=== PATIENT | female | born 1970 | race African-American/Black ===

== ENCOUNTER 2017-02-12 08:13 | Emergency (ER) | payer OTHER ==
[~2017-02-12] VITALS: Ht 165.1 cm; Wt 79.4 kg
[2017-02-12 08:22] VITALS: BP 142/84
--- NOTE | 2017-02-12 08:32 | NUR ---
Patient ambulated to bed 6 at this time.
--- NOTE | 2017-02-12 08:34 | NUR ---
46F BIB FAMILY C/O LEFT CHEST PAIN, SHARP, NON-RADIATING, 8 X 0300 THIS MORNING W/ RIGHT ARM NUMBNESS; RIGHT CAP REFILL < 2 SECONDS, RIGHT RADIAL PULSE PALPABLE, NO LOSS OF SENSATION TO RIGHT ARM AT THIS TIME; PT AA&OX4, PERRLA, BL LUNG SOUNDS CLEAR, RR EVEN/UNLABORED, SKIN IS WARM/DRY/INTACT AT THIS TIME; PT STATES NO N/V/D AT THIS TIME; PT PLACED ON MONITOR, RESTING IN BED W/ HOB ELEVATED AND IN LOWEST POSITION; POSITIONED FOR COMFORT; ER MD MADE AWARE OF STATUS. WILL CONTINUE TO MONITOR.
--- NOTE | 2017-02-12 08:56 | NUR ---
XRAY AT BEDSIDE.
[2017-02-12 09:07] LABS: HEMATOCRIT 26.3 % (36-48); HEMOGLOBIN 7.9 g/dL (12.0-16.0); MEAN CORPUSCULAR HEMOGLOBIN 21 pg (27-31); MEAN CORPUSCULAR HGB CONC 30 g/dL (33-37); MEAN CORPUSCULAR VOLUME 69 fL (80-94); PLATELET COUNT (AUTO) 188 K/uL (140-450); RED BLOOD CELL COUNT(AUTO) 3.83 MIL/uL (4.20-5.40); RED CELL DISTRIBUTION WIDTH 24.9 % (11.6-13.7); WHITE BLOOD COUNT (AUTO) 9.4 K/uL (4.8-10.8)
[2017-02-12 09:10] LABS: ANION GAP 11.6 (8-16); CALCIUM 8.8 mg/dL (8.5-10.1); CARBON DIOXIDE 25.4 mmol/L (21-32); CREATININE 0.5 mg/dL (0.6-1.3)
[2017-02-12 09:14] LABS: LYMPHOCYTES % (MANUAL) 9 % (20-46); MONOCYTES % (MANUAL) 17 % (5-12); NEUTROPHILS % (MANUAL) 69 (43-65)
[2017-02-12 09:15] LABS: ANISOCYTOSIS 2+; EOSINOPHILS % (MANUAL) 5 % (0-4); HYPOCHROMASIA 1+
[2017-02-12 09:16] LABS: ALBUMIN 3.7 g/dL (3.4-5.0); TOTAL BILIRUBIN 0.2 mg/dL (0.0-1.0); TOTAL PROTEIN, SERUM 7.4 g/dL (6.4-8.2)
[2017-02-12 09:23] LABS: BILIRUBIN,URINE NEGATIVE (NEGATIVE); BLOOD, URINE TRACE-I (NEGATIVE); COLOR,URINE YELLOW (YELLOW); LEUKOCYTE ESTERASE ,URINE NEGATIVE (NEGATIVE); NITRITE, URINE NEGATIVE (NEGATIVE); PROTEIN,URINE NEGATIVE (NEGATIVE); UGLUCOSE NEGATIVE (NEGATIVE); UROBILINOGEN,URINE 0.2 EU/dL (0.2 - 1)
[2017-02-12 09:30] LABS: AMPHETAMINE, URINE NEG. ng/ml (NEG <=1000); BARBITURATE, URINE NEG. ng/ml (NEG <=200); BENZODIAZEPINE, URINE NEG. ng/mL (NEG <=200); CANNABINOID, URINE NEG. ng/mL (NEG <=50); COCAINE, URINE NEG. ng/mL (NEG <=300); OPIATE, URINE NEG. ng/mL (NEG <=2000); PHENCYCLIDINE SCREEN,URINE NEG. ng/mL (NEG <=25)
--- NOTE | 2017-02-12 09:33 | NUR ---
PT APPEARS TO BE RESTING COMFORTABLY IN BED; RR EVEN/UNLABORED; POSITIONED FOR COMFORT; WILL CONTINUE TO MONITOR.
[2017-02-12 09:41] LABS: APPEARANCE,URINE HAZY (CLEAR)
--- NOTE | 2017-02-12 09:42 | NUR ---
ER MD DR. CHING EVALUATING PT AT BEDSIDE.
[2017-02-12] MEDS ORDERED: HYDROcodone/APAP 10/325 MG 1 TAB TAB PO STA (09:43)
[2017-02-12 09:45] LABS: BACTERIA,URINE None Seen /HPF (None Seen); RBC,URINE NONE SEEN /HPF (0-5); SQUAMOUS EPITHELIAL CELL,UR 4-10 (MOD) /LPF (0-3 (FEW)); WBC,URINE 0-5 (RARE) /HPF (0-5)
[2017-02-12 09:46] LABS: YEAST,URINE Rare /HPF (None Seen)
--- NOTE | 2017-02-12 09:52 | NUR ---
RT AT BEDSIDE FOR ABG BLOOD DRAW.
[2017-02-12 10:21] LABS: BLOOD GAS BASE EXCESS -0.5 mmol/L (-2.0-2.0); BLOOD GAS HCO3 23.7 mmol/L; BLOOD GAS PCO2 37.1 mmHg (20-50); BLOOD GAS PH 7.424 (7.35-7.45); BLOOD GAS PO2 81.8 mmHg
[2017-02-12 10:22] LABS: BLOOD GAS O2 SAT% 95.8 % (92.0-98.5)
[2017-02-12 11:11] VITALS: BP 133/74
--- NOTE | 2017-02-12 11:11 | NUR ---
Patient discharged with v/s stable. Written and verbal after care instructions given and explained. Patient alert, oriented and verbalized understanding of instructions. Ambulatory with steady gait. All questions addressed prior to discharge. ID band removed. Patient advised to follow up with PMD. Rx of NORCO 10MG-325MG TAB & MOBIC 15MG TAB given. Patient educated on indication of medication including possible reaction and side effects. Opportunity to ask questions provided and answered.
== END 2017-02-12 11:11 | disposition home or self-care (01) ==
LOC: MED 08:13
DX: R07.89 Other chest pain (principal); D64.9 Anemia, unspecified; F20.9 Schizophrenia, unspecified
CPT/HCPCS: 36415; 36600; 71010; 80053; 80305; 81001; 81025; 82803; 84484; 85025; 85379; 99285; Q0092

== ENCOUNTER 2017-09-18 12:04 | Emergency (ER) | payer OTHER ==
[~2017-09-18] VITALS: Ht 165.1 cm; Wt 91.2 kg
[2017-09-18 12:11] VITALS: BP 113/47
--- NOTE | 2017-09-18 12:17 | NUR ---
PT AMBULATED TO BED 12
--- NOTE | 2017-09-18 12:20 | NUR ---
PATIENT PRESENTS TO ED TO GET MEDICAL CLEARANCE FOR HYSTERECTOMY SCHEDULED ON 09/23 . PT IS REQUESTING TO HAVE CXR AND EKG DONE . DENIES N/V/D; SKIN IS PINK/WARM/DRY; AAOX4 WITH EVEN AND STEADY GAIT; LUNGS CLEAR BL; HR EVEN AND REGULAR; PT DENIES ANY FEVER, CP, SOB, OR COUGH AT THIS TIME; PATIENT STATES PAIN OF 0/10 AT THIS TIME; VSS; PATIENT POSITIONED FOR COMFORT; HOB ELEVATED; BEDRAILS UP X2; BED DOWN. ER MD MADE AWARE OF PT STATUS.
[2017-09-18 12:45] LABS: HEMATOCRIT 29.4 % (36-48); MEAN CORPUSCULAR HEMOGLOBIN 24 pg (27-31); MEAN CORPUSCULAR HGB CONC 31 g/dL (33-37); MEAN CORPUSCULAR VOLUME 78 fL (80-94); PLATELET COUNT (AUTO) 515 K/uL (140-450); RED BLOOD CELL COUNT(AUTO) 3.77 MIL/uL (4.20-5.40); RED CELL DISTRIBUTION WIDTH 19.7 % (11.6-13.7); WHITE BLOOD COUNT (AUTO) 13.6 K/uL (4.8-10.8)
[2017-09-18 12:54] LABS: BILIRUBIN,URINE NEGATIVE (NEGATIVE); BLOOD, URINE 3+ (NEGATIVE); COLOR,URINE YELLOW (YELLOW); LEUKOCYTE ESTERASE ,URINE NEGATIVE (NEGATIVE); NITRITE, URINE NEGATIVE (NEGATIVE); PH,URINE 5.5 (5.0-9.0); UGLUCOSE NEGATIVE (NEGATIVE)
[2017-09-18 13:03] LABS: ALBUMIN 3.7 g/dL (3.4-5.0); ANION GAP 14.8 (8-16); CARBON DIOXIDE 24.7 mmol/L (21-32); CREATININE 0.7 mg/dL (0.6-1.3); EOSINOPHILS % (MANUAL) 1 % (0-4); LYMPHOCYTES % (MANUAL) 7 % (20-46); MONOCYTES % (MANUAL) 5 % (5-12); POTASSIUM 3.5 mmol/L (3.5-5.1); TOTAL BILIRUBIN 0.2 mg/dL (0.0-1.0)
[2017-09-18 13:06] LABS: APPEARANCE,URINE HAZY (CLEAR)
[2017-09-18 13:09] LABS: RBC,URINE 3-10 (FEW) /HPF (0-5)
[2017-09-18 13:10] LABS: WBC,URINE 0-5 (RARE) /HPF (0-5)
[2017-09-18 14:23] VITALS: BP 138/70
--- NOTE | 2017-09-18 14:24 | NUR ---
Patient discharged with v/s stable. Written and verbal after care instructions given and explained. Patient verbalized understanding. Ambulatory with steady gait. All questions addressed prior to discharge. Advised to follow up with PMD.
[2017-09-19 04:16] LABS: PROTHROMBIN TIME 10.9 secs (10.8-13.4)
== END 2017-09-18 14:24 | disposition home or self-care (01) ==
LOC: MED 12:04
DX: Z01.812 Encounter for preprocedural laboratory examination (principal); Z88.2 Allergy status to sulfonamides; Z88.6 Allergy status to analgesic agent
CPT/HCPCS: 36415; 71045; 80053; 81001; 85025; 85610; 85730; 93005; 99285; Q0092

== ENCOUNTER 2017-09-23 06:06 | Inpatient (IN) | payer OTHER ==
[2017-09-23] VITALS (24 sets, daily range): BP systolic 102–140; BP diastolic 45–78
[~2017-09-23] VITALS: Ht 165.1 cm; Wt 86.6 kg
[2017-09-23] MEDS ORDERED: BUPIVACAINE-MPF 0.25% 30 ML VIAL INJ ONE (07:22)
[2017-09-23] MEDS ORDERED: GLYCOPYRROLATE 0.2 MG/ML VIAL IV ONE (07:25)
[2017-09-23] MEDS ORDERED: SUCCINYLCHOLINE CHLORIDE 200 MG/10 ML VIAL IV ONE (07:25)
[2017-09-23] MEDS ORDERED: NEOSTIGMINE 1:1000 10 MG/10 ML VIAL IV ONE (07:25)
[2017-09-23] MEDS ORDERED: PROPOFOL 200 MG/20 ML VIAL IV ONE (07:25)
[2017-09-23] MEDS ORDERED: ROCURONIUM 50 MG/5 ML VIAL IV ONE (07:25)
[2017-09-23] MEDS ORDERED: DESFLURANE 240 ML BTL INH ONE (07:25)
[2017-09-23] MEDS ORDERED: ONDANSETRON 4 MG/2 ML VIAL IVP ONE (07:25)
[2017-09-23] MEDS ORDERED: DEXAMETHASONE 4 MG/ML VIAL IVP ONE (07:25)
[2017-09-23] MEDS ORDERED: ACETAMINOPHEN/CODEINE 300/30MG 1 TAB PO PRN (07:30)
[2017-09-23] MEDS ORDERED: MORPHINE SULFATE 4 MG/ML SYR ONE (07:34)
[2017-09-23] MEDS ORDERED: fentaNYL 0.05 MG/ML VIAL ONE (07:34)
[2017-09-23] MEDS ORDERED: MIDAZOLAM 2 MG/2 ML VIAL ONE (07:34)
[2017-09-23] MEDS ORDERED: BUPIVACAINE-MPF/EPI 0.5% 30 ML VIAL INJ ONE (07:53)
--- NOTE | 2017-09-23 08:56 | NUR ---
PATIENT HAS BEEN SCREENED AND CATEGORIZED LOW NUTRITION RISK. PATIENT WILL BE SEEN WITHIN 7 DAYS OF ADMISSION. 09/29/[address]
[2017-09-23] MEDS ORDERED: MIDAZOLAM 2 MG/2 ML VIAL IV ONE (09:00)
[2017-09-23] MEDS ORDERED: MORPHINE SULFATE 4 MG/ML SYR IVP PRN ×2 (09:00)
[2017-09-23] MEDS ORDERED: MORPHINE SULFATE 2 MG/ML SYR IVP PRN (09:00)
[2017-09-23 09:38] LABS: HEMATOCRIT 22.1 % (36-48)
[2017-09-23 09:45] LABS: HEMOGLOBIN 6.6 g/dL (12.0-16.0)
--- NOTE | 2017-09-23 10:00 | NUR ---
RECEIVED PATIENT REPORT AT BEDSIDE FROM OR NURSE. PATIENT IS DROWSY, ATTEMPTED TO ASSESS ALERTNESS AND ORIENTATION HOWEVER PATIENT FALLS BACK TO SLEEP WHEN QUESTIONS ARE ASKED. WHEN ASKED IF PATIENT HAS PAIN PATIENT STATED, "NO," PATIENT THEN FELL ASLEEP. SHE HAS NO S/S OF ACUTE DISTRESS ON ROOM AIR. IV NOTED ON THE LEFT HAND AND RIGHT WRIST WITH IVF'S INFUSING WELL, PATENT AND INTACT. NOTED ABD DRX CLEAN DRY AND INTACT, PATIENT HAS A KALYANI PAD WITH DARK SPOTTING BLOOD. PATIENT WAS EXPLAINED POC FOR TODAY, HOSPITAL ENVIRONMENT AND USE OF CALL LIGHT FOR ASSISTANCE, PATIENT VERBALIZED UNDERSTANDING. ALL NEEDS MET AT THIS TIME, BED IN LOW POSITION WITH CALL LIGHT WITHIN REACH.
--- NOTE | 2017-09-23 11:31 | NUR ---
CM NOTE INITIAL REVIEW FAXED TO [facility] [phone] ROL[place] # [phone]
--- NOTE | 2017-09-23 13:00 | NUR ---
BLOOD TRANSFUSION BEGAN V/S CHARTED, PATIENT SHOWS NO S/S OF ACUTE DISTRESS AT THIS TIME, ALL NEEDS MET, WILL CONTINUE TO MONITOR.
--- NOTE | 2017-09-23 13:30 | NUR ---
PATIENT RECEIVING BLOOD TRANSFUSION AT THIS TIME AND TOLERATING WELL. V/S CHARTED, PATIENT SHOWS NO S/S OF ACUTE DISTRESS AT THIS TIME, ALL NEEDS MET, WILL CONTINUE TO MONITOR.
--- NOTE | 2017-09-23 15:00 | NUR ---
PATIENT OOB ON CHAIR AND SHOWS NO S/S OF ACUTE DISTRESS AT THIS TIME, ALL NEEDS MET. PATIENT DRINKING FLUIDS AND TOLERATING DIET WELL. NO DIFFICULTY SWALLOWING.
--- NOTE | 2017-09-23 17:00 | NUR ---
BLOOD TRANSFUSION FINISHED. PATIENT TOLERATED FIRST UNIT WELL. V/S CHARTED, PATIENT SHOWS NO S/S OF ACUTE DISTRESS AT THIS TIME, ALL NEEDS MET.
--- NOTE | 2017-09-23 17:30 | NUR ---
SECOND UNTI OF BLOOD TRANSFUSION BEGAN V/S CHARTED, PATIENT SHOWS NO S/S OF ACUTE DISTRESS AT THIS TIME, ALL NEEDS MET, WILL CONTINUE TO MONITOR.
--- NOTE | 2017-09-23 19:35 | NUR ---
GAVE PATIENT REPORT AT BEDSIDE TO NIGHT NURSE, PATIENT ENDORSED IN STABLE CONDITION.
--- NOTE | 2017-09-23 19:40 | NUR ---
RECEIVED FROM AM RN WITH BLOOD TRANSFUSION ONGOING #2 UNIT. NO ADVERSE REACTIONS NOTED FROM BLOOD TRANSFUSION ON GOING. ABLE TO VERBALIZE SIMPLE NEEDS. A/O X 4. RE-ORIENTED TO CALL LIGHT USE FOR ANY HELP SHE MAY NEED. ABDOMINAL DRESSING INTACT AND NO BLEEDING NOTED AT THIS TIME. NO COMPLAINTS OF ANY PAIN AT THIS TIME. RE-ORIENTED TO CARE PLANS FOR THE DAY AND ENCOURAGED TO CALL FOR ANY HELP SHE MAY NEED OR IF SHE NEEDS ANY HELP. IVF SITE TO RIGHT HAND #20 INTACT AND NO INFILTRATION NOTED.
--- NOTE | 2017-09-23 21:35 | NUR ---
BLOOD TRANSFUSION DONE TIMED. NO NOTED ADVERSE REACTIONS. PT. AWAKE AT THIS TIME. ABLE TO VERBALIZE NEEDS WELL. SPEAKS ESTONIAN WELL. CALL LIGHT WITH IN REACH.
[2017-09-23] MEDS: MORPHINE SULFATE 4 MG/ML SYR IM/IVP PRN (21:44)
--- NOTE | 2017-09-23 23:32 | NUR ---
PT. ASSISTED BY BENCH WORKER WITH HER PERSONAL HYGIENE. MEDICATED WITH PAIN RELIEVER REQUESTED EARLIER. NO FURTHER COMPLAINTS DONE. PT. TRYING TO SLEEP . WAKES UP EASILY .
[2017-09-24 00:50] VITALS: BP 145/78
[2017-09-24 04:57] VITALS: BP 145/78
[2017-09-24] MEDS: MORPHINE SULFATE 4 MG/ML SYR IM/IVP PRN ×3 (05:00→17:12)
--- NOTE | 2017-09-24 06:00 | NUR ---
PT. MEDICATED WITH PAIN RELIEVER REQUESTED. A/O X 4. NO BLEEDING TO ABDOMINAL DRESSING. USES CALL LIGHT FOR HELP.
[2017-09-24 06:25] LABS: HEMATOCRIT 30.3 % (36-48); HEMOGLOBIN 9.3 g/dL (12.0-16.0); MEAN CORPUSCULAR HEMOGLOBIN 25 pg (27-31); MEAN CORPUSCULAR HGB CONC 31 g/dL (33-37); MEAN CORPUSCULAR VOLUME 80 fL (80-94); PLATELET COUNT (AUTO) 295 K/uL (140-450); RED BLOOD CELL COUNT(AUTO) 3.79 MIL/uL (4.20-5.40); RED CELL DISTRIBUTION WIDTH 16.9 % (11.6-13.7); WHITE BLOOD COUNT (AUTO) 16.7 K/uL (4.8-10.8)
[2017-09-24 07:21] LABS: LYMPHOCYTES % (MANUAL) 11 % (20-46); MONOCYTES % (MANUAL) 4 % (5-12)
--- NOTE | 2017-09-24 07:29 | NUR ---
ENDORSED TO THE NEXT RN FOR CONTINUITY OF CARE SLEEPING. WAKES UP ESILY WHEN TOUCHED OR CALLED BY NAME.
--- NOTE | 2017-09-24 07:30 | NUR ---
RECEIVED REPORT FROM MINERALOGY PROFESSOR NURSE AT BEDSIDE FOR CONTINUITY OF CARE. PATIENT ASLEEP IN BED. ABDOMINAL DRESSING INTACT AND NO BLEEDING NOTED AT THIS TIME. NO COMPLAINTS OF ANY PAIN AT THIS TIME. BREATHING EVEN AND UNLABORED. IV TO LEFT AND RIGHT HAND #20, INTACT, ASYMPTOMATIC, AND PATENT. WINKLER CATHETER DRAINING TO GRAVITY WITH 775 ML OF DARK YELLOW CLEAR URINE. SAFETY PRECAUTION IN PLACE, CALL LIGHT WITHIN REACH. WILL CONTINUE TO MONITOR PATIENT.
[2017-09-24 08:00] VITALS: BP 122/69
--- NOTE | 2017-09-24 10:44 | NUR ---
PATIENT C/O PAIN 7/10 D/T ABDOMINAL INCISION. MORPHINE PRN ADMINISTERED. PATIENT TOLERATED IT WELL. SAFETY PRECAUTION IN PLACE, CALL LIGHT WITHIN REACH. WILL CONTINUE TO MONITOR PATIENT.
--- NOTE | 2017-09-24 11:23 | NUR ---
CM NOTE CONCURRENT REVIEW FAXED TO [facility] [phone] [place] # [phone]
--- NOTE | 2017-09-24 13:15 | NUR ---
PATIENT RESTING IN BED, NO COMPLAINTS OF ANY PAIN AT THIS TIME. BREATHING EVEN AND UNLABORED. SAFETY PRECAUTION IN PLACE, CALL LIGHT WITHIN REACH. WILL CONTINUE TO MONITOR PATIENT.
--- NOTE | 2017-09-24 16:30 | NUR ---
WINKLER CATHETER REMOVED, WITH 600 ML OF CLEAR YELLOW URINE. PATIENT TOLERATED IT WELL. INSTRUCTED PATIENT TO CALL FOR ASSISTANCE WHEN SHE NEEDS TO VOID. ALSO ENCOURAGED PATIENT TO AMBULATE. PATIENT VERBALIZED UNDERSTANDING. SAFETY PRECAUTION IN PLACE, CALL LIGHT WITHIN REACH, WILL CONTINUE TO MONITOR PATIENT.
[2017-09-24] MEDS: ONDANSETRON 4 MG/2 ML VIAL IVP PRN ×2 (17:19→23:02)
--- NOTE | 2017-09-24 17:20 | NUR ---
PATIENT C/O PAIN 7/10 D/T ABDOMINAL INCISION. MORPHINE PRN ADMINISTERED. PATIENT ALSO C/O NAUSEA, ZOFRAN PRN ADMINISTERED. PATIENT TOLERATED THEM WELL. SAFETY PRECAUTION IN PLACE, CALL LIGHT WITHIN REACH. WILL CONTINUE TO MONITOR PATIENT.
--- NOTE | 2017-09-24 19:15 | NUR ---
REPORT GIVEN TO OPERATOR PREFINISH NURSE AT BEDSIDE FOR CONTINUITY OF CARE. PATIENT IN STABLE CONDITION.
--- NOTE | 2017-09-24 19:25 | NUR ---
RECEIVED FROM AM RN IN BED SLEEPING. PREFERS NOT TO WAKE UP. PER AM RN PT. HAD NO COMPLAINTS DONE. CALL LIGHT WITH IN REACH. IVF SITE INTACT AND NO INFILTRATION.
[2017-09-24 20:00] VITALS: BP 122/70
--- NOTE | 2017-09-24 21:58 | NUR ---
PT.SEEN VOMITING AND HOLDING ON TO STOMACH. OFFERED PAIN RELIEVER AND ANTI NAUSEA MEDICATION. ALL MEDICATIONS RETURNED .PT. STATED NO. "I CANNOT TAKE ANYMORE MEDICATION IN MY SYSTEM." EXPLAINED BENEFITS OF IT. "NO". CALL LIGHT WITH IN REACH.A/O X 4.
--- NOTE | 2017-09-24 23:05 | NUR ---
PT. REQUESTED FOR ANTI NAUSEA . SITTING AT THE EDGE OF BED. ASSISTED BY DOSIER OPERATOR TO GO BACK IN BED.
--- NOTE | 2017-09-25 00:43 | NUR ---
CHECKED ON PT. SLEEPING. CALL LIGHT WITH IN REACH. NO RESTLESSNESS NOTED.
--- NOTE | 2017-09-25 02:00 | NUR ---
PT. STILL AWAKE AT THIS TIME WATCHING TV. ENCOURAGED TO GO URINATE. PT. REFUSING TO STAND UP AND AMBULATE A LITTLE FARTHER. PREFERS TO STAY IN BED. NOTICED PT. WITH [facility]. ASKED IF SHE PROBABLY HAD URINATED IN IT. " MAYBE" ..X 3" PER PT.
--- NOTE | 2017-09-25 03:00 | NUR ---
PT. SLEEPING AT THIS TIME. NO RESTLESSNESS. CALL LIGHT WITH IN REACH.
[2017-09-25 03:53] VITALS: BP 159/88
[2017-09-25] MEDS: MORPHINE SULFATE 4 MG/ML SYR IM/IVP PRN ×2 (04:54→17:54)
[2017-09-25] MEDS: ONDANSETRON 4 MG/2 ML VIAL IVP PRN ×3 (04:55→17:54)
--- NOTE | 2017-09-25 05:02 | NUR ---
PT. AWAKE AT THIS TIME. COMPLAINED OF NAUSEA. MEDICATED WITH ZOFRAN IVP AND MEDICATED WITH PAIN RELIEVER REQUESTED. ENCOURAGED TO NOT SO MUCH ICE WHAT SHE HAS BEEN DOING. ENCOURAGED TO DRINK WATER AND EAT ICE ON MEDERATION. PT. AT THIS TIME WENT BACK TO SLEEP. PT. REFUSED TO HAVE AM PERSONAL HYGIENE.
--- NOTE | 2017-09-25 06:38 | NUR ---
MD DEVI IN HERE TO CHECK ON THE PT. NO FURTHER ORDERS GIVEN. DRESSING INTACT AND NO BLEEDING.
--- NOTE | 2017-09-25 07:30 | NUR ---
REPORT RECEIVED FROM ACADEMY DIRECTOR NURSE, MICHAEL, PT RESTING WITH EYES CLOSED, AROUSES EASILY BY VOICE, RESP EVEN UNLABORED ON RA, SKIN WARM DRY COLOR WNL, PT HOLDING UP EMESIS BAG, STATES SHE IS NAUSEA, ZOFRAN JUST GIVEN BY ACADEMY DIRECTOR, IVF INFUSING WELL, SITE WNL, PLAN OF CARE REVIEWED, ALL SAFETY MEASURES IN PLACE, WILL CONTINUE TO MONITOR. Addendum: 09/25/17 at 1837 by Sylvia Amaro RN PT WITH FLAT AFFECT AND SPEAKS WITH LOW VOICE, MUMBLES UNDER HER BREATH, DIFFICULT TO UNDERSTAND.
[2017-09-25 08:00] VITALS: BP 150/79
--- NOTE | 2017-09-25 08:30 | NUR ---
LARGE EMESIS X1, PT REQUESTS FOOD AFTER VOMITING, PT ENCOURAGED TO REST HER STOMACH FOR NOW, ENCOURAGED AMBULATION, WILL CONTINUE TO MOTNIR.
--- NOTE | 2017-09-25 10:05 | NUR ---
CM NOTE CONCURRENT REVIEW FAXED TO [facility] [phone] [place] # [phone]
--- NOTE | 2017-09-25 10:46 | NUR ---
PT UP OUT OF BED WITH MINIMAL ASSIST, AMBULATED SHORT DISTANCE IN THE HALLWAY WITH STEADY GAIT, RETURNED BACK TO BED, C/O NAUSEA WILL MEDICATE WITH ZOFRAN.
--- NOTE | 2017-09-25 14:02 | NUR ---
PT VOMITED AGAIN AFTER TAKING JELLO AND POPCICLE FOR LUNCH, BS CONTINUES TO BE VERY HYPO ACTIVE, PT REFUSES ANTIEMETIC MEDS, REFUSES TO GET OUT OF BED DUE TO PAIN BUT REFUSES PAIN MEDS, WILL CALL DR Rao COLUNGA.
[2017-09-25 16:00] VITALS: BP 154/89
--- NOTE | 2017-09-25 16:12 | NUR ---
PER DR Rao COLUNGA, DR GERTRUDE MCCAIN FOR NEW CONSULT, WILL START NS IVF AT 100ML/HR, AND OK TO REMOVE ABD DRESSING AND KEEP IT RACK PUNCHER PER DR Rao COLUNGA.
[2017-09-25] MEDS: NACL 0.9% 1,000 ML IV SCH (16:40)
--- NOTE | 2017-09-25 17:37 | NUR ---
LARGE LIQ EMESIS AGAIN, PT THINKS NS IVF MADE HER SICK, PT REASSURED THAT IVF IS FOR HYDRATION AND IS NOT CAUSING HER TO VOMIT, PT NOW REQUESTS MORPHINE, WILL MEDICATE WITH MORPHINE AND ZOFRAN. Addendum: 09/25/17 at 1840 by Sylvia Amaro RN PT REPEATEDLY ASKS FOR SOMETHING TO DRINK, RE EDUCATED ON NPO STATUS. PT REFUSES TO GET UP TO AMBULATE. WILL CONTINUE TO MONITOR.
--- NOTE | 2017-09-25 19:32 | NUR ---
REPORT GIVEN TO REEL STRIPPER NURSE, PT IN STABLE CONDITION
--- NOTE | 2017-09-25 19:33 | NUR ---
RECEIVED FROM AM RN IN BED . NO N/V AT THIS TIME. RESTING. ABLE TO USE CALL LIGHT FOR HELP. A/O X 4. NO SOB. ON NPO STATUS ORDERED BY MD Rao COLUNGA PER AM RN. PT. REFUSES TO AMBULATE PER AM RN. MEDICATED WITH PAIN RELIEVER PRN. DRESSING TO ABDOMEN INTACT AND NO BLEEDING NOTED. IVF SITES INTACT AND NO INFILTRATION NOTED.
--- NOTE | 2017-09-25 22:20 | NUR ---
PT. BEEN SLEEPING. NO RESTLESSNESS NOTED. CALL LIGHT WITH IN REACH. A/O X 4.
--- NOTE | 2017-09-26 01:31 | NUR ---
PT. WOKE UP VOMITING. REQUESTED FOR PAIN RELIEVER AND ANTI NAUSEA AT THIS TIME. WILL MEDICATE. AWAKE AND ALERT. ORIENTED X 4. ENCOURAGED TO AMBULATE TOMORROW WHEN SHE HAVE CHANCE RT REFUSED TO AMBULATE . "OK".
[2017-09-26 01:37] VITALS: BP 148/78
[2017-09-26] MEDS: ONDANSETRON 4 MG/2 ML VIAL IVP PRN ×3 (01:39→23:52)
[2017-09-26] MEDS: MORPHINE SULFATE 4 MG/ML SYR IM/IVP PRN ×3 (01:40→19:13)
[2017-09-26] MEDS: NACL 0.9% 1,000 ML IV SCH ×3 (01:41→22:10)
--- NOTE | 2017-09-26 02:11 | NUR ---
PT. STILL AWAKE AND REMINDED THAT SHE IS NPO. EDUCATED RE: NPO AND PROS AND CONS ABOUT IT. PT. STATED THAT SHE IS ABLE TO STAND UP AND GET WATER FROM SINK AND DRINK IT. REMINDED WHY SHE IS NPO AND THAT MEANS NOTHING PER MOUTH . " I KNOW, I KNOW..I JUST USE THAT WATER TO RINSE MY MOUTH." I TOOK OUT CUP WITH WATER ON IT AND ALSO TOOK OUT PITCHER. PT. AWARE AND ENCOURAGED TO GO BACK TO SLEEP. "OK"
--- NOTE | 2017-09-26 04:55 | NUR ---
PT. AM PERSONAL HYGIENE RENDERED BY CNAS. PT. SEEN AMBULATING THIS TIME OUTSIDE ROOM FOR A WHILE. ENCOURAGED TO WALK IN A.M. SHIFT TOO. "OK" GOOD AFFECT. IVF SITE INTACT AND NO INFILTRATION.
--- NOTE | 2017-09-26 07:16 | NUR ---
SLEEPING. WAKES UP WHEN CALLED BY NAME. ENDORSED TO THE NEXT RN FOR CONTINUITY OF CARE. A/O X 4. REMINDED NPO AGAIN.
--- NOTE | 2017-09-26 07:30 | NUR ---
RECEIVED REPORT FORM EDGE STAINER MACHINE RN. PT IS AAOX4, NO N/V AT THIS TIME. NO SOB NOTED. REINFORCED WITH PT ABOUT NPO STATUS ORDERED BY MD. DRESSING NOTED TO ABDOMEN INTACT AND NO BLEEDING NOTED. IVF SITES INTACT AND ASYMPTOMATIC, CALL LIGHT WITHIN REACH, DISCUSSED PLAN OF CARE WITH PT, PT VERBALIZED UNDERSTANDING.
--- NOTE | 2017-09-26 10:05 | NUR ---
ORDERS RECEIVED FROM MD LOREDO. CT SCAN ABD/PELVIS W/O CONTRAST, CBC BMP
[2017-09-26 11:04] LABS: CARBON DIOXIDE 24.9 mmol/L (21-32); CREATININE 0.6 mg/dL (0.6-1.3); POTASSIUM 3.9 mmol/L (3.5-5.1)
[2017-09-26 11:08] LABS: HEMATOCRIT 28.6 % (36-48); HEMOGLOBIN 9.1 g/dL (12.0-16.0); MEAN CORPUSCULAR HEMOGLOBIN 25 pg (27-31); MEAN CORPUSCULAR HGB CONC 32 g/dL (33-37); MEAN CORPUSCULAR VOLUME 79 fL (80-94); PLATELET COUNT (AUTO) 342 K/uL (140-450); RED BLOOD CELL COUNT(AUTO) 3.62 MIL/uL (4.20-5.40); RED CELL DISTRIBUTION WIDTH 16.7 % (11.6-13.7); WHITE BLOOD COUNT (AUTO) 6.5 K/uL (4.8-10.8)
[2017-09-26 11:17] LABS: LYMPHOCYTES % (MANUAL) 8 % (20-46); MONOCYTES % (MANUAL) 5 % (5-12)
--- NOTE | 2017-09-26 13:40 | NUR ---
PT WAS TAKEN TO RADIOLOGY FOR ABD/PELVIS CT W/O CONTRAST. NO S/S OF ACUTE DISTRESS NOTED.
--- NOTE | 2017-09-26 14:00 | NUR ---
ABD DRESSING CHANGED. COVERED WITH ABD PADS. WOUND WELL APPROXIMATED WITH BRAVO, NO REDNESS, SWELLING OR DRAINAGE NOTED,
--- NOTE | 2017-09-26 15:05 | NUR ---
PT C/O NAUSEA. WILL MEDICATE
[2017-09-26 16:00] VITALS: BP 133/78
--- NOTE | 2017-09-26 17:50 | NUR ---
PAGED DR LOREDO ABOUT CT RESULT, WAITING FOR CALL BACK.
--- NOTE | 2017-09-26 18:30 | NUR ---
PAGED DR COLUNGA ABOUT CT RESULT, WAITING FOR CALL BACK.
--- NOTE | 2017-09-26 18:45 | NUR ---
DR LOREDO CALLED BACK, PROVIDED MD WITH CT RESULT AND MOST RECENT WBC AND HGB. DR LOREDO ORDERED FULL LIQ DIET AND STATED HE WILL COME TO SEE THE PT TODAY.
--- NOTE | 2017-09-26 19:30 | NUR ---
ENDORSED TO THE NEXT RN FOR CONTINUITY OF CARE. ASSOCIATE FINANCIAL ANALYST WILL DO PAIN REASSESSMENT. PT HAD NO VOMITING THROUGHOUT THE SHIFT.
--- NOTE | 2017-09-26 19:30 | NUR ---
PATIENT IS CURRENTLY RESTING IN BED AWAKE ALERT ORIENTED,IVF INFUSING WELL IV SITE PATENT, PATIENT HAS NO COMPLAINS OF NAUSEA OR VOMITING OR ABD PAIN AT THIS TIME. INCISION TO LOWER CURRENTLY COVERED WITH ABD PAD AND INCISION IS DRY AND INTACT.INCISION WITH BRAVO. PATIENT ENCOURAGED TO AMBULATE. PATIENT VERBALIZES UNDERSTANDING.CALL LIGHT WITHIN REACH.
--- NOTE | 2017-09-26 19:31 | NUR ---
Patient's Plan of Care was discussed and reviewed with SURVEILLANCE INVESTIGATOR: STEFFANY YING
[2017-09-26 20:00] VITALS: BP 160/79
--- NOTE | 2017-09-26 21:41 | NUR ---
JOSE PATHAK CAME TO SEE THE PATIENT.
--- NOTE | 2017-09-26 22:52 | NUR ---
PATIENT IN THE ROOM WANTS HER IVF TO BE DISCONNECTED PATIENT STATES,"IM FEELING VERY NAUSEATED I WANT YOU TO DISCONNECT THE IV FLUID." I EXPLAINED TO THE PATIENT THAT HER IVF HAS NO MEDICATION OR ANYTHING TO MAKE HER SICK I TOLD THE PATIENT THAT ITS TO HYDRATE HER AND IF SHE IS VOMITING SHE NEEDS TO HAVE IV FLUIDS.PATIENT VERBALIZES UNDERSTANDING BUT REFUSED IVF PATIENT STATES,"I UNDERSTAND BUT I DON'T WANT IT PLEASE DISCONNECT ME." I OFFERED PATIENT ANTIEMETIC BUT PATIENT REFUSED PATIENT STATES,"PLEASE DON'T GIVE ME ANY MORE MEDS I DON'T WANT MEDS." PATIENT REFUSED THE ANTIEMETIC PATIENT STATES,"I WANT MY DISCOMFORT TO GO AWAY ON ITS OWN." PATIENT REFUSED ANTIEMETIC AND IV FLUIDS I SPOKE WITH AIRWORTHINESS INSPECTOR NURSE ALENA AND INFORMED HER CHARGE NURSE AWARE AND SAID PATIENT HAS THE RIGHT TO REFUSE.I EXPLAINED TO THE PATIENT THAT IF SHE CHANGES HER MIND TO LET ME KNOW.WILL CONTINUE TO MONITOR.
--- NOTE | 2017-09-26 23:52 | NUR ---
PATIENT IS CURRENTLY SITTING AT THE EDGE OF THE BED PATIENT CONTINUES TO BE NAUSEATED I TOLD THE PATIENT YOU NEED ANTIEMETIC MEDICATION TO CONTROL YOUR NAUSEA WOULD YOU LIKE SOME MEDICATION.PATIENTS STATES,"YES, OK I WANT THE MEDICATION." SHIRLEY PHAN AWARE SHE MEDICATED THE PATIENT WITH ZOFRAN WILL CONTINUE TO MONITOR.
--- NOTE | 2017-09-27 00:34 | NUR ---
PATIENT IS CURRENTLY RESTING IN BED I ASKED THE PATIENT IF SHE IS FEELING BETTER AND IF THE NAUSEA SUBSIDED PATIENT STATES,"YES, IM DOING GOOD." I ASKED THE PATIENT IF ITS OK FOR ME TO CONNECT HER TO HER IVF PATIENT STATES,"NO." PATIENT KNODS HER HEAD REFUSES.I EDUCATED THE PATIENT ON THE IMPORTANCE TO GET IVF SO SHE CAN STAY HYDRATED BUT PATIENT REFUSES.
--- NOTE | 2017-09-27 01:00 | NUR ---
PATIENT ASSISTED BACK TO BED WITH THE ASSISTANCE OF SYLVESTER PATIENT CONTINUE TO REUFUSE IVF PATIENT DOESN'T WANT IT.
--- NOTE | 2017-09-27 03:30 | NUR ---
PATIENT RESTING IN BED COVERED WITH BLANKETS. NEEDS MET WILL CONTINUE TO MONITOR.
[2017-09-27 04:45] VITALS: BP 150/91
--- NOTE | 2017-09-27 05:53 | NUR ---
PATIENT HAD ANOTHER EPISODE OF FEELING NAUSEATED AND VOMITED PATIENT COMPLAINS OF SEVERE PAIN TO INCISION SITE SHIRLEY PHAN AWARE SHE WILL MEDICATE THE PATIENT WITH AN ANTIEMETIC AND PAIN MEDICATION ORDERED FOR PAIN.
[2017-09-27] MEDS: MORPHINE SULFATE 4 MG/ML SYR IM/IVP PRN ×3 (05:56→18:20)
[2017-09-27] MEDS: ONDANSETRON 4 MG/2 ML VIAL IVP PRN ×4 (05:56→18:20)
--- NOTE | 2017-09-27 06:41 | NUR ---
PATIENT IS CURRENTLY RESTING IN BED PATIENT PT STATES,"MY PAIN WAS RELIEVED AND ALSO THE NAUSEA." PATIENT CURRENTLY RESTING IN BED AND PATIENT CONTINUES TO REFUSE IVF.
--- NOTE | 2017-09-27 07:32 | NUR ---
PATIENT STABLE REPORT ENDORSED TO SHIRLEY MENDEZ SHE WILL RESUME CARE.
--- NOTE | 2017-09-27 07:33 | NUR ---
RECEIVED REPORT FROM WATCH INSPECTOR RN AT BEDSIDE FOR CONTINUITY OF CARE. PATIENT IS RESTING IN BED. PATENT, ASYMPTOMATIC, AND INTACT. BREATHING EVEN AND UNLABORED, NO SIGNS OF DISTRESS NOTED. INTRODUCED MYSELF TO THE PATIENT AND UPDATED THE BOARD. PATIENT DENIES PAIN OR NAUSEA AT THIS TIME. IV ON L HAND AND R FA #20G, INTACT, ASYMPTOMATIC, AND PATENT. AND PLAN OF CARE WAS UPDATED, PATIENT VERBALIZED UNDERSTANDING. SAFETY PRECAUTIONS IN PLACE, CALL LIGHT WITHIN REACH. WILL CONTINUE TO MONITOR PATIENT.
[2017-09-27 08:00] VITALS: BP 147/82
[2017-09-27] MEDS: NACL 0.9% 1,000 ML IV SCH ×2 (08:10→19:00)
--- NOTE | 2017-09-27 08:50 | NUR ---
DR. COLUNGA IN TO SEE THE PATIENT. HE UPDATED HER ON THE PLAN OF CARE, SHE VERBALIZED UNDERSTANDING. SHE REQUESTED A SODA. DIETARY WAS CALLED. SODA GIVEN TO PATIENT. SAFETY PRECAUTIONS IN PLACE, CALL LIGHT WITHIN REACH. WILL CONTINUE O MONITOR PATIENT.
--- NOTE | 2017-09-27 09:48 | NUR ---
PATIENT RESTING IN BED, VOMITED 200CC. REQUESTED ZOFRAN IVP. ZOFRAN PRN IVP ADMINISTERED. PATIENT TOLERATED IT WELL. PATIENT DENIED PAIN AT THIS TIME, DOES NOT WANT THE MORPHINE PRN. SAFETY PRECAUTIONS IN PLACE, CALL LIGHT WITHIN REACH. WILL CONTINUE TO MONITOR PATIENT. Addendum: 09/27/17 at 1331 by Asif Mayes RN VOMITED 200 CC OF EMESIS.
--- NOTE | 2017-09-27 11:40 | NUR ---
PATIENT RESTING IN BED, 300CC OF EMESIS IN EMESIS BAG. PATIENT REQUESTED MORPHINE IVP PRN FOR PAIN OF ABDOMEN. MORPHINE ADMINISTERED. PATIENT TOLERATED IT WELL. PATIENT REQUESTED CLEAR LIQUID DIET INSTEAD OF FULL LIQUID. DIETARY WAS INFORMED. WAITING FOR CLEAR LIQUID TRAY AND TO ASSESS HOW PATIENT WILL TOLERATE IT. OFFERED AND EDUCATED PATIENT ON IV FLUIDS AND ITS BENEFITS. PATIENT DECLINED TO HAVE IV FLUIDS, POINTING TO THE FLUIDS THAT SHE WAS DRINKING "THAT'S ENOUGH." PATIENT REQUESTED ICE CHIPS WHILE WAITING FOR LUNCH TRAY. ICE CHIPS GIVEN, PATIENT TOLERATED THEM WELL. SAFETY PRECAUTIONS IN PLACE, CALL LIGHT WITHIN REACH. WILL CONTINUE TO MONITOR PATIENT.
--- NOTE | 2017-09-27 13:20 | NUR ---
PATIENT VOMITED 200 ML OF FLUID. PATIENT SITTING IN CHAIR AT THE BEDSIDE, REQUESTED CHANGE OF GOWN. KRYSTAL DUMONTE IN TO CHANGE GOWN, BED LINENS, AND GIVE SPONGE BATH. PATIENT TOLERATING IT WELL. PATIENT REFUSED ABDOMINAL DRESSING CHANGE STATING THAT "IT'S FINE,". SAFETY PRECAUTIONS IN PLACE, CALL LIGHT WITHIN REACH, WILL CONTINUE TO MONITOR PATIENT.
[2017-09-27 16:00] VITALS: BP 148/75
--- NOTE | 2017-09-27 16:25 | NUR ---
PATIENT VOMITED 600 ML OF EMESIS. PATIENT REQUESTED ICE FOR HER HEAD. SHE STATED THAT SHE HAD A HEADACHE. TYLENOL PRN OFFERED. PATIENT REFUSED. SHE STATED "I DON'T WANT MORE MEDS, THEY MAKE ME TIRED." EDUCATED PATIENT ON THE BENEFITS OF MEDICATION. ICE PACK GIVEN TO PATIENT. ENCOURAGED PATIENT TO AMBULATE. PATIENT REFUSED. EDUCATED HER THE BENEFITS OF AMBULATING AND HOW IT WILL IMPROVE HER CONDITION. PATIENT VERBALIZED UNDERSTANDING BUT STATES "I'M TOO TIRED TO MOVE". STATED THAT "I ALREADY SAT IN THE CHAIR FOR 30 MINUTES LIKE YOU SAID, I WANT TO BE IN BED." SAFETY PRECAUTION IN PLACE, CALL LIGHT WITHIN EASY REACH. WILL CONTINUE TO MONITOR PATIENT.
--- NOTE | 2017-09-27 18:24 | NUR ---
PATIENT SITTING BY SIDE OF THE BED EATING CLEAR LIQUID DINNER. PATIENT VOMITED 500 ML OF EMESIS. REQUESTED ZOFRAN FOR THE NAUSEA AND VOMITING AND MORPHINE FOR THE PAIN. ZOFRAN AND MORPHINE PRN ADMINISTERED REQUESTED. PATIENT TOLERATED THEM WELL. SAFETY PRECAUTION IN PLACE, CALL LIGHT WITHIN REACH. WILL CONTINUE TO MONITOR PATIENT.
--- NOTE | 2017-09-27 18:30 | NUR ---
DR. COLUNGA WAS PAGED REGARDING PATIENT'S CONDITION. WILL AWAIT CALL BACK.
--- NOTE | 2017-09-27 19:30 | NUR ---
REPORT GIVEN TO SUPPLY CHAIN GENERALIST NURSE AT BEDSIDE FOR CONTINUITY OF CARE. PATIENT IN STABLE CONDITION.
--- NOTE | 2017-09-27 19:40 | NUR ---
RECEIVED REPORT FROM AM NURSE. AOX4, AMBULATORY WITH GENERALIZED WEAKNESS, ABLE TO VERBALIZE NEEDS. PT REPORTS ABD PAIN, PT ALREADY MEDICATED BY AM NURSE, WILL MONITOR. PT REPORTS HAVING NAUSEA AND MULTIPLE EMESIS TODAY. ABD SOFT ROUND LARGE, HYPOACTIVE BOWEL SOUNDS NOTED. PT IS S/P HYSTERECTOMY (09/23) WITH SUPRAPUBIC TRANSVERSE INCISION WITH BRAVO, APPROXIMATED WELL, NO REDNESS, DISCHARGE OR BLEEDING. DRESSING CLEAN DRY AND INTACT, PT REPORTS DRESSING BEING CHANGED TODAY. IV ACCESS ASYMPTOMATIC, PATENT AND INTACT. PT REFUSING IVF DESPITE EDUCATION, MD AWARE PER AM NURSE. DISCUSSED AND REVIEWED PLAN OF CARE WITH PT. PT ENCOURAGED TO AMBULATE, PT STATED THAT SHE AMBULATED TODAY. ALL NEEDS MET. SAFETY MEASURES ENSURED. CALL LIGHT WITHIN REACH.
--- NOTE | 2017-09-27 20:15 | NUR ---
PT ABLE TO SIT UP TO CHAIR WITH STANDBY ASSIST. PROFESSIONAL [employer] SALES CONSULTANT REPORTED THAT PT HAD 800ML EMESIS, ZOFRAN IVP PRN ALREADY GIVEN BY AM NURSE, WILL GIVE WHEN DUE. PT SITTING AT BEDSIDE, SAFETY MEASURES ENSURED. CALL LIGHT WITHIN REACH.
--- NOTE | 2017-09-27 23:30 | NUR ---
PT RESTING COMFORTABLY. SUPRAPUBIC TRANSVERSE INCISION WITH BRAVO, WELL APPROXIMATED, NO BLEEDING, REDNESS, SWELLING OR DRAINAGE. CLEANSED WITH NS AND GAUZE, PAT DRY, COVERED WITH ABD PAD. PT TOLERATED WELL. PT'S UNDERWEAR IS SLIGHTLY SOILED WITH EMESIS. OFFERED TO CHANGE UNDERWEAR, PT REFUSED, PT STATED "I DON'T WANT TO CHANGE THEM, I ALREADY CHANGED THEM TODAY." PROVIDED PT WITH APPLE JUICE. ALL NEEDS MET. SAFETY MEASURES ENSURED. CALL LIGHT WITHIN REACH.
[2017-09-28] MEDS: ONDANSETRON 4 MG/2 ML VIAL IVP PRN ×2 (02:14→08:33)
[2017-09-28] MEDS: MORPHINE SULFATE 4 MG/ML SYR IM/IVP PRN ×2 (02:14→08:33)
--- NOTE | 2017-09-28 02:28 | NUR ---
PT C/O NAUSEA. ADMINISTERED ZOFRAN IVP PRN WITH EDUCATION. PT C/O LOWER ABD PAIN, SEE PAIN ASSESSMENT, ADMINISTERED MORPHINE 4MG IVP PRN WITH EDUCATION. PT VERBALIZED UNDERSTANDING, TOLERATED MEDS WELL. ALL NEEDS MET. SAFETY MEASURES ENSURED. CALL LIGHT WITHIN REACH.
[2017-09-28] MEDS: NACL 0.9% 1,000 ML IV SCH ×3 (04:10→23:59)
--- NOTE | 2017-09-28 06:20 | NUR ---
PT HAD AN EPISODE OF VOMITING, 200ML OF EMESIS NOTED. PT REFUSED TO TAKE ZOFRAN IVP PRN, PT STATED "I DON'T WANT NONE OF THAT. IT'S THE NOR[place] THAT I WAS TAKING THAT'S MAKING ME SICK." CALLED DR Rao COLUNGA, MADE AWARE THAT THERE ARE NO LABS FOR THE AM, RECEIVED ORDER FOR [facility]. ALSO MADE AWARE THAT PT IS STILL HAVING VOMITING SINCE YESTERDAY AND LAST NIGHT.
--- NOTE | 2017-09-28 07:15 | NUR ---
CALLBACK FROM DR LOREDO NOT YET RECEIVED, ENDORSED PLAN OF CARE TO AM NURSE. CONDITION STABLE.
--- NOTE | 2017-09-28 07:16 | NUR ---
RECEIVED REPORT FROM BATTERY VENT PLUG INSERTER NURSE ROSA AT BEDSIDE FOR CONTINUITY OF CARE. PT IS AWAKE AND ORIENTED. INTRODUCED SELF AND UPDATED BOARD. PT HAS IV TO LEFT AND RIGHT HAND 20G. REFUSED TO HAVE IV FLUIDS OF NS. ON CLEAR LIQUID DIET. SUPRAPUBIC TRANSVERSE INCISIONS COVERED WITH ABD PADS, DRY AND INTACT. NO DRAINAGE OR ODOR FROM INCISIONS. PT LYING IN BED RIGHT NOW, NO SIGNS OF DISTRESS. WILL CONTINUE TO MONITOR.
[2017-09-28 08:00] VITALS: BP 144/83
[2017-09-28 08:02] LABS: HEMATOCRIT 31.2 % (36-48); HEMOGLOBIN 9.6 g/dL (12.0-16.0); MEAN CORPUSCULAR HEMOGLOBIN 24 pg (27-31); MEAN CORPUSCULAR HGB CONC 31 g/dL (33-37); MEAN CORPUSCULAR VOLUME 77 fL (80-94); PLATELET COUNT (AUTO) 432 K/uL (140-450); RED BLOOD CELL COUNT(AUTO) 4.03 MIL/uL (4.20-5.40); RED CELL DISTRIBUTION WIDTH 17.7 % (11.6-13.7); WHITE BLOOD COUNT (AUTO) 9.1 K/uL (4.8-10.8)
[2017-09-28 08:30] LABS: ANION GAP 13.1 (8-16); CREATININE 0.6 mg/dL (0.6-1.3); POTASSIUM 3.1 mmol/L (3.5-5.1)
--- NOTE | 2017-09-28 09:00 | NUR ---
PT STATED SHE AMBULATED DOWN THE MENDOZA FOR 10MINS. STATED SHE HAS PASSED GAS BUT HAD NO BM TODAY. PT HAD LARGE EMESIS OF 1000ML DARK GREEN LIQUID. PAGED DR. COLUNGA.
[2017-09-28 09:31] LABS: EOSINOPHILS % (MANUAL) 3 % (0-4); LYMPHOCYTES % (MANUAL) 14 % (20-46); MONOCYTES % (MANUAL) 18 % (5-12)
--- NOTE | 2017-09-28 10:38 | NUR ---
CM NOTE CONCURRENT REVIEW FAXED TO [facility] [phone] ROLAND # [phone]
--- NOTE | 2017-09-28 12:08 | NUR ---
PAGED DR. COLUNGA. NO CALLBACK RECEIVED.
[2017-09-28] MEDS ORDERED: KETOROLAC 10 MG TAB PO PRN (14:10)
[2017-09-28] MEDS ORDERED: KCL 20 MEQ/WATER INJ PREMIX 100 ML IV ONE (14:20)
[2017-09-28] MEDS ORDERED: ONDANSETRON 4 MG/2 ML VIAL IVP SCH (14:30)
[2017-09-28] MEDS: FERRIC GLUCONATE 125 MG in NACL 0.9% 100 ML IV SCH (15:00)
--- NOTE | 2017-09-28 15:38 | NUR ---
CHECKED ON PT IN ROOM. PT REFUSED TO HAVE K-RIDER INFUSING AND IV FLUIDS. PT STATED "THAT'S TOO MUCH FOR MY VEINS." TOLD PT I CAN DECREASE RATE OF K-RIDER. AND GAVE RISKS AND BENEFITS OF MED AND IV FLUIDS. PT STILL REFUSED. PT SITTING IN BED WITH NAUSEA. REFUSED ZOFRAN. NO SIGNS OF DISTRESS. WILL CONTINUE TO MONITOR.
--- NOTE | 2017-09-28 15:50 | NUR ---
WENT IN TO TAKE PT'S VS. PT STATED "I'M ONLY GOING TO LET YOU TAKE MY VS AND NOTHING ELSE, DO NOT GIVE ME ANYMORE MEDICATIONS AND IV." TOLD PT THERE IS A NEW ORDER FOR FERRLECIT AND GAVE PURPOSE AND RISKS FOR NOT TAKING MED. PT ALSO REFUSED TO CONTINUE K-RIDER AND NS. ASKED PT WHAT CAN WE DO TO HELP IF SHE DOES NOT WANT MEDICATIONS. PT STATED "I JUST WANT TO BE LEFT ALONE, I DON'T FEEL GOOD." PT REFUSED MED AND IV FLUIDS. WILL CONTINUE TO MONITOR.
[2017-09-28 16:00] VITALS: BP 139/87
--- NOTE | 2017-09-28 17:00 | NUR ---
PT IV SL. PT REFUSED IV MEDS AND IVF. ASKED IF WE CAN CHANGE THE RATE OF FLUIDS OR CHANGE SITE OF IV. PT STATED "I DON'T WANT ANYMORE IVF AND DO NOT WANT TO GET POKED AGAIN." ENCOURAGED PT TO INCREASED PO FLUIDS. PT ASKED FOR MORE ICED WATER.
[2017-09-28] MEDS: SENNA 8.6 MG TAB PO SCH (17:10)
[2017-09-28] MEDS: traMADol 50 MG TAB PO PRN (17:19)
--- NOTE | 2017-09-28 18:30 | NUR ---
CALLED DR. GALICIA AND REPORTED PT REFUSING IV FLUIDS AND MEDICATIONS. NO ORDERS RECEIVED.
--- NOTE | 2017-09-28 19:24 | NUR ---
ENDORSED PT TO SUPERVISOR COVERING AND LINING NURSE TAMARA AT BEDSIDE FOR CONTINUITY OF CARE. PT IS AWAKE. IN STABLE CONDITION.
--- NOTE | 2017-09-28 19:35 | NUR ---
RECEIVED REPORT FROM DAY SHIFT, PATIENT RESTING IN BED, NO S/S OF DISTRESS NOTED, RESPIRATION EVEN AND UNLABORED, NOTED PATIENT WAS NOT CONNECTED TO THE IVF, PATIENT STATED," I DON'T WANT THAT." EDUCATION PROVIDED ON THE RISK AND BENEFIT OF GETTING IVF, PATIENT STILL REFUSED, CALL LIGHT WITHIN REACH, SAFETY MEASURE ENSURED, WILL CONTINUE TO MONITOR.
[2017-09-28] MEDS: ONDANSETRON 4 MG/2 ML VIAL IVP SCH (20:16)
--- NOTE | 2017-09-28 20:25 | NUR ---
PATIENT REFUSED MILK OF MAGNESIA, EDUCATION PROVIDED REGARDING THE BENEFIT OF GETTING THE MEDICATION AND COMPLICATION OF NOT GETTING THE MEDICATION, PATIENT VERBALIZED UNDERSTANDING, BUT STILL REFUSED. PATIENT ALSO REFUSED IVF AT THE SAME TIME.
[2017-09-28] MEDS ORDERED: MAGNESIUM HYDROXIDE 2400 MG/30 ML UDC PO SCH (21:00)
--- NOTE | 2017-09-28 22:20 | NUR ---
PATIENT STATED," I WANT YOU TO PUT ME TO SLEEP TOMORROW." ASKED PATIENT IF SHE ASKED FOR SLEEPING PILL. PATIENT SAID," NO, I CAN'T TAKE IT ANYMORE. I WANT TO GIVE UP MY LIFE. I HAVE THE RIGHTS TO GIVE UP MY LIFE." ASKED PATIENT IF SHE WAS IN PAIN OR ANYTHING THAT I COULD DO TO MAKE HER COMFORTABLE. PATIENT STATED," NO, I AM NOT IN PAIN, I JUST HAD IT ENOUGH." TOLD PATIENT WE WOULD HELP HER TO GET BETTER AND HELPED PATIENT TO EXPRESS HER STRESS AND FEELINGS. PATIENT STATED," OKAY, I WILL TRY." MADE CHARGE NURSE AWARE AND ALSO INFORMED DR. Brent COLUNGA. LINING STAMPER IS ALSO AWARE. LINING STAMPER CAME AND TALKED TO THE PATIENT, MOVED PATIENT TO THE ROOM CLOSE TO THE NURSE'S STATION, OFFERED PATIENT SODA AND ICE. PATIENT IS RESTING IN BED, NO S/S OF DISTRESS NOTED, SAFETY MEASURE ENSURED, WILL CONTINUE TO MONITOR.
[2017-09-29] VITALS: BP 143/89
--- NOTE | 2017-09-29 00:09 | NUR ---
ASKED FOR ICE AND WATER, OFFERED ICE AND WATER REQUESTED. PATIENT STATED," I AM OKAY." CALL LIGHT WITHIN REACH, SAFETY MEASURE ENSURED, WILL CONTINUE TO MONITOR.
--- NOTE | 2017-09-29 02:08 | NUR ---
PATIENT IS SLEEPING, NO S/S OF DISTRESS NOTED, RESPIRATION EVEN AND UNLABORED, CALL LIGHT WITHIN REACH, SAFETY MEASURE ENSURED, WILL CONTINUE TO MONITOR.
--- NOTE | 2017-09-29 04:14 | NUR ---
VOMITED X2, OFFERED ZOFRAN, PATIENT REFUSED, INFORMED RISK AND BENEFIT OF THE MEDICATION, PATIENT STILL REFUSED. CALL LIGHT WITHIN REACH, SAFETY MEASURE ENSURED, WILL CONTINUE TO MONITOR.
[2017-09-29] MEDS: ONDANSETRON 4 MG/2 ML VIAL IVP SCH ×3 (05:00→21:00)
--- NOTE | 2017-09-29 05:46 | NUR ---
VOMITED X2, OFFERED ZOFRAN, PATIENT STILL REFUSED, EDUCATION PROVIDED, PATIENT STATED," I DON'T WANT IT, IT MAKES ME SICK." INFORMED PATIENT ZOFRAN IS FOR NAUSEA AND VOMITING, BUT PATIENT SAID," I DON'T WANT IT." CALL LIGHT WITHIN REACH, SAFETY MEASURE ENSURED, WILL CONTINUE TO MONITOR.
--- NOTE | 2017-09-29 07:05 | NUR ---
DR. Brent COLUNGA CAME AND EXAMINED THE PATIENT, MADE HIM AWARE THAT PATIENT REFUSED IVF AND LUIZ, SAID," OKAY."
--- NOTE | 2017-09-29 07:15 | NUR ---
ENDORSED PLAN OF CARE TO DAY SHIFT RN, PATIENT IS IN STABLE CONDITION.
--- NOTE | 2017-09-29 07:22 | NUR ---
RECEIVED BEDSIDE REPORT FROM NIGHTSHIFT NURSE. PATIENT IS AWAKE AND RESTING IN BED. PATIENT'S BREATHING IS EVEN AND UNLABORED. NO COMPLAINTS OF PAIN AT THIS TIME FROM PATIENT. UPDATED BOARD AND PUT CALL LIGHT WITHIN REACH. PATIENT IS IN STABLE CONDITION AT THIS TIME.
[2017-09-29 08:00] VITALS: BP 126/78
[2017-09-29] MEDS: SENNA 8.6 MG TAB PO SCH ×3 (09:00→17:00)
[2017-09-29] MEDS ORDERED: POTASSIUM CHLORIDE 20% 40 MEQ/15 ML UDC GT SCH (09:00)
--- NOTE | 2017-09-29 09:07 | NUR ---
CM NOTE CONCURRENT REVIEW FAXED TO [facility] [phone] [place] # [phone]
--- NOTE | 2017-09-29 09:55 | NUR ---
EXPLAINED TO PATIENT OF LOW POTASSIUM LEVEL AND WHY SHE NEEDS IV POTASSIUM. PATIENT SAYS, "IT WHITE MY ARM. I DONT WANT IT". PATIENT VERBALIZED UNDERSTANDING. WILL NOTIFY DR. CRISTINE GRAY OF PATIENT'S CONCERNS.
[2017-09-29] MEDS: NACL 0.9% 1,000 ML IV SCH ×2 (10:10→20:10)
--- NOTE | 2017-09-29 11:41 | NUR ---
OFFERED POTASSIUM TO PATIENT A PO PILL AND REFUSED AND ASKED FOR SOMETHING FOR PAIN. PATIENT STATES, "I DONT WANT ANYMORE POTASSIUM. I JUST NEED SOMETHING FOR PAIN"
--- NOTE | 2017-09-29 11:46 | NUR ---
OFFERED PO PAIN MEDICATION PILLS BUT PATIENT REFUSED AND SAID, "I CAN'T HAVE THAT. IT'LL HURT MY STOMACH. I NEED SOMETHING THROUGH MY IV". WILL FOLLOW UP WITH DR REGARDING IV PAIN MEDICATIONS
[2017-09-29] MEDS ORDERED: POTASSIUM CHLORIDE 10 MEQ TABER PO SCH (12:00)
[2017-09-29] MEDS: traMADol 50 MG TAB PO PRN (13:42)
--- NOTE | 2017-09-29 14:00 | NUR ---
PATIENT IN BED. RESPIRATIONS ARE UNLABORED AND EVEN. WILL CONTINUE TO MONITOR PATIENT.
[2017-09-29] MEDS: FERRIC GLUCONATE 125 MG in NACL 0.9% 100 ML IV SCH (15:00)
--- NOTE | 2017-09-29 15:16 | NUR ---
09/29/2017 RD INITIAL ASSESSMENT COMPLETED PLEASE REFER TO NUTRITION ASSESSMENT UNDER CARE ACTIVITY FOR ESTIMATED NUTRITIONAL NEEDS. CONTINUE CLEAR LIQUID DIET TOLERATED. ADVANCE DIET APPROPRIATE TO REGULAR DIET. CONSIDER: SOLID BLAND FOODS FOR BETTER TOLERANCE. RD TO FOLLOW-UP IN 2-3 DAYS PATIENT IS HIGH RISK.
[2017-09-29 16:00] VITALS: BP 144/88
--- NOTE | 2017-09-29 19:25 | NUR ---
GAVE PATIENT REPORT TO NIGHTSHIFT NURSE. NURSE UPDATED ON PATIENT'S CONDITION. INFORMED NURSE OF NEW ORDERS. PATIENT IS IN STABLE CONDITION.
--- NOTE | 2017-09-29 19:40 | NUR ---
RECEIVED REPORT FROM DAY SHIFT RN, PATIENT RESTING IN BED, NO S/S OF DISTRESS NOTED, RESPIRATION EVEN AND UNLABORED, IV PATENT AND INTACT, PATIENT REFUSED IVF, EDUCATION PROVIDED REGARDING BENEFITS AND RISKS, PATIENT STILL REFUSED. PLAN OF CARE DISCUSSED, PATIENT VERBALIZED UNDERSTANDING, CALL LIGHT WITHIN REACH, SAFETY MEASURE ENSURED, WILL CONTINUE TO MONITOR.
[2017-09-29] MEDS ORDERED: SODIUM PHOSPHATE 118 ML ENEM RC SCH (20:15)
--- NOTE | 2017-09-29 20:50 | NUR ---
FLEET ENEMA ADMINISTERED ORDERED, PATIENT TOLERATED WELL. NO S/S OF DISTRESS NOTED, WILL CONTINUE TO MONITOR.
[2017-09-29] MEDS: POTASSIUM CHLORIDE 10 MEQ TABER PO SCH (21:00)
--- NOTE | 2017-09-29 21:10 | NUR ---
NOTED SMALL AMOUNT OF FORMED DARK BROWN STOOL, AND SOME LIQUID IN THE BEDSIDE COMMODE. PATIENT RESTING IN BED, NO S/S OF DISTRESS NOTED, WILL CONTINUE TO MONITOR.
--- NOTE | 2017-09-29 21:31 | NUR ---
PATIENT REFUSED K-DUR AND LUIZ, EDUCATION OF THE BENEFIT AND RISK PROVIDED TO THE PATIENT, PATIENT STILL REFUSED. DR. David GALICIA IS AWARE, SAID," I CAN'T DO ANYTHING IF THE PATIENT REFUSE THE TREATMENT. YOU DON'T NEED TO KEEP CALLING ME ABOUT PATIENT REFUSE MEDICATION. THANK YOU."
[2017-09-30] VITALS: BP 146/90
--- NOTE | 2017-09-30 01:31 | NUR ---
PATIENT ASKED FOR ICE PACK, ASKED IF SHE NEEDS PAIN MEDICATION, PATIENT SAID," NO, I DON'T WANT ANY PAIN MEDICATION." ICE PACK OFFERED REQUESTED.
[2017-09-30] MEDS ORDERED: ONDANSETRON 4 MG/2 ML VIAL IVP PRN (01:55)
--- NOTE | 2017-09-30 02:25 | NUR ---
PATIENT ASKED SOMETHING FOR NAUSEA, MADE DR. Brent COLUNGA AWARE, RECEIVED ORDER OF ZOFRAN IVP PRN ONCE FOR NAUSEA AND VOMITING. ORDER RECEIVED AND CARRIED OUT. Addendum: 09/30/17 at 0229 by Quan Arenas RN ZOFRAN 4MG IVP
--- NOTE | 2017-09-30 02:40 | NUR ---
PAGED DR. LOREDO FOR THE SMALL BOWEL X-RAY RESULT
--- NOTE | 2017-09-30 03:30 | NUR ---
MADE DR. LOREDO AWARE OF SMALL BOWEL X-RAY RESULT, RECEIVED ORDER FROM DR. LOREDO, INSERT NG TUBE, INTERMITTENT, LOW SUCTION.
--- NOTE | 2017-09-30 03:54 | NUR ---
CHARGE NURSE AND I ATTEMPTED TO INSERT NG TUBE, BUT PATIENT YELLING," NO, I CAN'T TAKE IT, LEAVE MY STOMACH ALONE" AND PATIENT PULLED THE NG TUBE OUT, EDUCATED PATIENT REGARDING THE RISKS OF NOT GETTING THE NG TUBE, AND THE BENEFITS OF HAVING THE NG TUBE. PATIENT STATED," I UNDERSTAND, JUST LET ME , I DON'T WANT IT." PATIENT IS SITTING IN BED, RESPIRATION EVEN AND UNLABORED, WILL CONTINUE TO MONITOR.
--- NOTE | 2017-09-30 04:24 | NUR ---
PATIENT WAS EATING ICE CHIPS, AND HALF OF BANANA, ASKED PATIENT WHERE SHE GOT THE BANANA FROM, PATIENT SAID," I SAVED FROM MY DINNER TRAY." TOLD PATIENT THAT SHE SHOULD BE NOTHING BY MOUTH, PATIENT SAID," I KNOW, BUT I POOPED, AND I AM OKAY, I CAN EAT NOW." INFORMED PATIENT THAT SHE SHOULD NOT EAT UNTIL DOCTOR SAID OKAY, PATIENT SAID," I FEEL BETTER, I AM OKAY." PATIENT IS SLEEPING NOW.
[2017-09-30] MEDS: ONDANSETRON 4 MG/2 ML VIAL IVP SCH ×4 (05:54→20:04)
--- NOTE | 2017-09-30 05:55 | NUR ---
ZOFRAN GIVEN ORDERED, PATIENT TOLERATED WELL. NO S/S OF DISTRESS NOTED, WILL CONTINUE TO MONITOR.
[2017-09-30] MEDS: NACL 0.9% 1,000 ML IV SCH ×2 (06:10→16:10)
--- NOTE | 2017-09-30 07:12 | NUR ---
ENDORSED PLAN OF CARE TO DAY SHIFT RN, PATIENT IS IN STABLE CONDITION.
--- NOTE | 2017-09-30 07:35 | NUR ---
ENDORSEMENT RECEIVED FROM NEUROCRITICAL CARE PHYSICIAN NURSE. PATIENT IS AWAKE, ALERT. RESPIRATION EVEN, UNLABOR ON ROOM AIR. SKIN DRY AND WARM. IVS PATENT AND INTACT. DENIED PAIN AT THIS TIME, COMPLAINED OF NAUSEA. PATIENT REFUSED TO AMBULATE AROUND THE HALLWAY AT THIS TIME. SURGICAL INCISION DRY AND INTACT. PLAN OF CARE WAS DISCUSSED WITH PATIENT. BED AT LOW POSITION, SIDE RAILS UP. CALL LIGHT WITHIN REACH
[2017-09-30 08:00] VITALS: BP 133/82
--- NOTE | 2017-09-30 09:03 | NUR ---
CM NOTE CONCURRENT REVIEW FAXED TO [facility] [phone] [place] # [phone]
[2017-09-30] MEDS: SENNA 8.6 MG TAB PO SCH ×3 (09:32→17:00)
[2017-09-30] MEDS: POTASSIUM CHLORIDE 10 MEQ TABER PO SCH ×2 (09:32→21:00)
--- NOTE | 2017-09-30 10:00 | NUR ---
PATIENT REQUESTED HAVING MILK AND APPLESAUCE. RISK WAS EXPLAINED TO THE PATIENT. HOWEVER, PATIENT CONTINUED TO INSIST. WILL CONTINUE TO MONITOR FOR N/V
--- NOTE | 2017-09-30 10:30 | NUR ---
PATIENT DENIED N/V, OR PAIN AFTER DRINKING MILK AND APPLESAUCE. WILL CONTINUE TO MONITOR
--- NOTE | 2017-09-30 11:30 | NUR ---
DR. LOREDO WAS PAGED REGARDING PATIENT'S CURRENT CONDITION AND REFUSAL OF NGT, WILL CONTINUE TO FOLLOW UP
--- NOTE | 2017-09-30 13:15 | NUR ---
RUG TOUCH UP PAINTER WAS AT BEDSIDE, TRANSFERRING PATIENT TO RADIOLOGY. PATIENT IS STABLE AT THIS TIME
--- NOTE | 2017-09-30 13:20 | NUR ---
DR. LOREDO WAS MADE AWARE OF PATIENT'S REFUSAL OF NGT, ADVISED TO CONTINUE WAGNER MONITOR
--- NOTE | 2017-09-30 13:31 | NUR ---
PATIENT IS TRANSFERRED BACK TO THE UNIT. RESPIRATION EVEN, UNLABOR. NO COMPLAIN OF PAIN, N/V
[2017-09-30] MEDS: FERRIC GLUCONATE 125 MG in NACL 0.9% 100 ML IV SCH (15:00)
--- NOTE | 2017-09-30 15:03 | NUR ---
PATIENT REFUSED IV MEDS, STATED THEY BURNED HER VEIN AND ORGANS. MED EDUCATION WAS EXPLAINED TO THE PATIENT. HOWEVER, PATIENT CONTINUED TO REFUSE
[2017-09-30 16:00] VITALS: BP 119/71
--- NOTE | 2017-09-30 16:00 | NUR ---
PATIENT IS AWAKE, ALERT. RESPIRATION EVEN, UNLABOR ON ROOM AIR. DENIED PAIN, N/V AT THIS TIME. NO DISTRESS NOTED. VS WAS TAKEN. CALL LIGHT WITHIN REACH
--- NOTE | 2017-09-30 16:39 | NUR ---
PATIENT HAD BM IN THE COMMODE, WATERY, LARGE AMOUNT. ENCOURAGE PATIENT TO AMBULATE, PATIENT STATED SHE CAN GET DIZZINESS WHEN WALKING AND MAY FALL, SHE DOES NOT WISH TO WALK AT THIS TIME. VS WAS STABLE.
--- NOTE | 2017-09-30 18:19 | NUR ---
PATIENT IS AWAKE, ALERT. RESPIRATION EVEN, UNLABOR ON ROOM AIR. DENIED PAIN, N/V. PATIENT TOLERATED DINNER WELL. IV PATENT AND INTACT. NO DISTRESS NOTED AT THIS TIME. CALL LIGHT WITHIN REACH
--- NOTE | 2017-09-30 19:18 | NUR ---
ENDORSEMENT GIVEN TO THE UPPER CASER NURSE. PATIENT IS STABLE AT THIS TIME
--- NOTE | 2017-09-30 19:19 | NUR ---
RECD. RESTING IN BED, SLEEPING BUT EASILY WAKES UP WHEN NAME CALLED. A/OX4, RESPIRATION EVEN AND UNLABORED.WITH TWO IV LINES LEFT HAND AND RIGHT HAND BOTH G20, PATENT AND INTACT BUT PATIENT IS REFUSING TO BE CONNECTED TO IV MACHINE. ABDOMEN SOFT, NON TENDER WITH POSITIVE BOWEL SOUNDS ON ALL QUADRANTS. PLAN OF CARE FOR THE SHIFT DISCUSSED. VERBALIZED UNDERSTANDING. DENIES PAIN 0/10
[2017-09-30 20:00] VITALS: BP 120/66
--- NOTE | 2017-09-30 20:00 | NUR ---
Patient's Plan of Care was discussed and reviewed with PRESSURE SEALER AND TESTER: YAJAIRA
--- NOTE | 2017-09-30 20:04 | NUR ---
NAUSEATED, VOMITED SMALL AMOUNT OF FLUID, MEDICATED WITH ZOFRAN BY SHIRLEY LEE.
[2017-09-30] MEDS ORDERED: MORPHINE SULFATE 4 MG/ML SYR IVP PRN (20:35)
--- NOTE | 2017-09-30 20:35 | NUR ---
NO VOMITING NOTED.
--- NOTE | 2017-09-30 21:00 | NUR ---
DR. LOREDO CAME, INQUIRED IF HE WANTS THE CT ABDOMEN WITH CONTRAST TO BE DONE. DID NOT ANSWER. SPOKE WITH PATIENT. WILL ORDER PAIN MEDICATION.
--- NOTE | 2017-09-30 21:17 | NUR ---
REFUSED TO TAKE K DUR TABLETS. EXPLAINED THAT HER K LEVEL IS LOW - 3.1, AND IT IS IMPORTANCE FOR THE HEART. STILL REFUSED.
--- NOTE | 2017-09-30 22:00 | NUR ---
HAD LOOSE BROWNISH BM MODERATE AMOUNT.
[2017-10-01] VITALS: BP 118/78
--- NOTE | 2017-10-01 00:30 | NUR ---
RESTING IN BED AWAKE, INQUIRED IF SHE IS IN PAIN, STATED I HAD ALREADY VOMITED, AND BOWEL MOVEMENT, I WANT TO SLEEP NOW. INSTRUCTED TO CALL NURSE IF EVER SHE NEEDS PAIN MEDICATION.
[2017-10-01] MEDS: NACL 0.9% 1,000 ML IV SCH ×4 (02:10→23:16)
[2017-10-01] MEDS: ONDANSETRON 4 MG/2 ML VIAL IVP SCH ×3 (04:07→20:38)
--- NOTE | 2017-10-01 04:27 | NUR ---
STILL NAUSEATED, WITH OCCASIONAL VOMITING. MEDICATED WITH ZOFRAN BY SHIRLEY LEE SCHEDULED.
--- NOTE | 2017-10-01 04:57 | NUR ---
NO N/V NOTED, SLEEPING COMFORTABLY IN BED.
--- NOTE | 2017-10-01 06:48 | NUR ---
CONDITION REMAIN STABLE. ALL NEEDS ATTENDED. WILL ENDORSE TO AM NURSE FOR CONTINUITY OF CARE.
[2017-10-01 08:00] VITALS: BP 117/73
--- NOTE | 2017-10-01 08:00 | NUR ---
PATIENT AWAKE, ALERT. RESPIRATION EVEN, UNLABOR ON ROOM AIR. SKIN DRY AND WARM. IV PATENT AND INTACT. DENIED PAIN, N/V AT THIS TIME. PLAN OF CARE WAS DISCUSSED WITH PATIENT. BED AT LOW POSITION, SIDE RAILS UP. CALL LIGHT WITHIN REACH
--- NOTE | 2017-10-01 08:04 | NUR ---
CM NOTE CONCURRENT REVIEW FAXED TO [facility] [phone] ROL[place] # [phone]
[2017-10-01] MEDS: POTASSIUM CHLORIDE 10 MEQ TABER PO SCH ×2 (09:00→20:32)
--- NOTE | 2017-10-01 09:00 | NUR ---
PATIENT REFUSED TO TAKE POTASSIUM, STATED HER STOMACH CANNOT TAKE IT. RISK AND BENEFITS OF TREATMENT WAS EXPLAINED TO THE PATIENT.
--- NOTE | 2017-10-01 11:14 | NUR ---
DR. LOREDO WAS PAGED REGARDING CT ABDOMEN WITH CONTRAST ORDER, WILL CONTINUE TO FOLLOW UP
--- NOTE | 2017-10-01 12:51 | NUR ---
PATIENT REFUSED ZOFRAN, STATED THAT SHE NO LONGER FEELS NAUSEA. PATIENT TOLERATING FULL LIQUID DIET WELL. PATIENT AMBULATED AROUND THE HALLWAY UNDER SUPERVISION OF STAFF, STEADY GAIT
[2017-10-01] MEDS: FERRIC GLUCONATE 125 MG in NACL 0.9% 100 ML IV SCH (15:00)
--- NOTE | 2017-10-01 15:00 | NUR ---
PATIENT REFUSED TO TAKE IRON IV, STATED IT WHITE HER VEIN. EXPLAINED TO THE PATIENT THE UNLIKELIHOOD OF THAT HAPPENING WITH IRON. PATIENT CONTINUED TO REFUSE
[2017-10-01 15:43] LABS: HEMOGLOBIN 10.3 g/dL (12.0-16.0); MEAN CORPUSCULAR HEMOGLOBIN 24 pg (27-31); MEAN CORPUSCULAR HGB CONC 33 g/dL (33-37); MEAN CORPUSCULAR VOLUME 74 fL (80-94); PLATELET COUNT (AUTO) 535 K/uL (140-450); RED CELL DISTRIBUTION WIDTH 19.7 % (11.6-13.7); WHITE BLOOD COUNT (AUTO) 28.2 K/uL (4.8-10.8)
[2017-10-01 15:59] LABS: ANION GAP 8.8 (8-16); POTASSIUM 3.1 mmol/L (3.5-5.1)
[2017-10-01 16:00] VITALS: BP 131/69
[2017-10-01 16:03] LABS: CARBON DIOXIDE 41.3 mmol/L (21-32)
[2017-10-01 16:07] LABS: LYMPHOCYTES % (MANUAL) 9 % (20-46); METAMYELOCYTES % 4 % (0-0); MONOCYTES % (MANUAL) 6 % (5-12)
[2017-10-01 16:08] LABS: MYELOCYTES % 2 % (0-0)
--- NOTE | 2017-10-01 16:33 | NUR ---
DR. COLUNGA WAS MADE AWARE OF PATIENT'S CRITICAL LAB VALUES, WILL MEDICATE PER ORDER. UPDATED PLAN OF CARE WAS DISCUSSED WITH PATIENT WITH RISK AND BENEFITS OF TREATMENT, PATIENT AGREED TO IVF NORMAL SALINE AND ANTIBIOTIC IV, BUT STATED SHE CAN TRY TO TAKE POTASSIUM TOMORROW AND SEE IF HER STOMACH CAN TAKE IT, WILL CONTINUE TO MONITOR. Addendum: 10/01/17 at 1724 by Deepika Patterson RN PATIENT AGREED TO TAKE POTASSIUM SCHEDULED AT 2100
--- NOTE | 2017-10-01 18:17 | NUR ---
PATIENT AWAKE, ALERT. RESPIRATION EVEN, UNLABOR. DENIED PAIN, N/V AT THIS TIME. IV PATENT AND INTACT. CALL LIGHT WITHIN REACH.
--- NOTE | 2017-10-01 18:26 | NUR ---
PATIENT IS AWAKE, ALERT. RESPIRATION EVEN, UNLABOR ON ROOM AIR. IV PATENT AND INTACT. DENIED PAIN, N/V AT THIS TIME. CALL LIGHT WITHIN REACH
--- NOTE | 2017-10-01 19:00 | NUR ---
DR. LOREDO WAS AT BEDSIDE, DISCUSSED WITH PATIENT AT GREAT LENGTH REGARDING THE NEED FOR SURGERY. PATIENT REFUSED SURGERY, STATED SHE WANTS TO WAIT FOR ANOTHER 2 DAYS. ALL THE RISKS AND BENEFITS WERE EXPLAINED TO THE PATIENT.
[2017-10-01] MEDS ORDERED: NACL 0.9% 1,000 ML IV ONE (19:05)
--- NOTE | 2017-10-01 19:15 | NUR ---
DR COLUNGA CALLED AND REQUESTED INFECTION CONSULT FROM DR. ALONZO. ORDER IS PLACED, WILL NOFITY DR. ALONZO
--- NOTE | 2017-10-01 19:24 | NUR ---
ENDORSEMENT GIVEN TO ALUM MIXER NURSE. PATIENT IS STABLE AT THIS TIME
--- NOTE | 2017-10-01 19:25 | NUR ---
RECEIVED BEDSIDE REPORT FROM DAY SHIFT NURSE BRINA RN, PT STABLE, NO DISTRESS NOTED, IV TO R WRIST 20G RUNNING NS BOLUS, PT ON ROOM AIR, NO SOB, PT SUTURE INTACT WITH BRAVO, PT REQUESTED TO BE COVERED WITH DRESSINGS, INITIAL ASSESSMENT DONE, ALL SAFETY PRECAUTION MET, WILL CONTINUE TO MONITOR.
--- NOTE | 2017-10-01 19:41 | NUR ---
DR. TODD WAS PAGED REGARDING REQUEST FOR CONSULT FROM DR. COLUNGA
--- NOTE | 2017-10-01 19:55 | NUR ---
TALKED TO DR. TODD REGARDING PT, STATED JUST PUT IN ORDERS AND HE WILL TAKE A LOOK AT PT.
--- NOTE | 2017-10-01 20:10 | NUR ---
IVF NS BOLUS FINISHED, PT REFUSED IVF, STATED: "MY VEINS HAD ENOUGH, IT STARTING TO HURT, I DON'T WANT ANYMORE IV", PT ALSO REFUSED INSERTION OF WINKLER CATH, STATED THAT SHE DOES NOT WANT ANY CATHETER INSERTED. PT AMBULATED TO BEDSIDE COMMODE, DID A BOWEL MOVEMENT, AND WENT BACK TO BED, NO DISTRESS NOTED, CALL LIGHT WITHIN REACH, WILL CONTINUE TO MONITOR. Addendum: 10/01/17 at 2230 by Reina Corley RN INFORMED PT REGARDING IMPORTANCE OF MEDICATION AND IVF, PT STATED UNDERSTAND BUT STILL REFUSED.
[2017-10-01] MEDS: SENNA 8.6 MG TAB PO SCH (20:33)
--- NOTE | 2017-10-01 20:38 | NUR ---
DUE MEDICATION GIVEN, PT REFUSED IV MEDICATION OF ZOFRAN, PT STATED NOT HAVING ANY NAUSEA ANYMORE, PT STABLE, NO DISTRESS NOTED, TOLERATED PO MEDICATION WELL, CALL LIGHT WITHIN REACH, WILL CONTINUE TO MONITOR.
--- NOTE | 2017-10-01 21:25 | NUR ---
CT CALLED TO STRATEGIC MARKETING LEADER PT TO HAVE ABD/PELVIS CT W/O CONTRAST, INFORMED PT, PT STATED SHE DOES NOT WANT TO GO TO CT RIGHT NOW, INFORMED HOUSE PAINTER, WILL TRY ASKING THE PT AGAIN LATER.
--- NOTE | 2017-10-01 21:45 | NUR ---
PT VOMITED A LITTLE AMOUNT OF FLUID, PT REFUSED ANY MEDICATION, STATED THAT THE MEDICATION IS THE ONE THAT CAUSED THE NAUSEA, PT REFUSED ZOFRAN ALSO, PT STABLE, NO DISTRESS NOTED, CALL LIGHT WITHIN REACH, WILL CONTINUE TO MONITOR.
--- NOTE | 2017-10-01 22:28 | NUR ---
INFORMED PT FAMILY REGARDING PT REFUSAL OF MEDICATION, PT FAMILY CALLED, PT SOUND AGITATED ON THE PHONE, THEN HUNG UP ON FAMILY, NO DISTRESS NOTED, CALL LIGHT WITHIN REACH, WILL CONTINUE TO MONITOR.
[2017-10-02] VITALS: BP 145/79
--- NOTE | 2017-10-02 00:35 | NUR ---
PT REFUSED ANTIBIOTIC, EDUCATED PT REGARDING USE OF ANTIBIOTIC, WHY IT IS IMPORTANT TO TAKE IT, PT STATED SHE DOES NOT CARE, HER VEIN HAD ENOUGH MEDICATION IN IT, REFUSED MEDICATION, AND STATED "TAKE THE IV POLE OUT OF MY ROOM"
--- NOTE | 2017-10-02 01:55 | NUR ---
INFORMED PT AGAIN REGARDING CT SCAN ORDERED BY . PT STATED NO, SHE DOES NOT WANT ANYTHING DONE TO HER AT THIS MOMENT. PT STABLE, NO DISTRESS NOTED, CALL LIGHT WITHIN REACH, WILL CONTINUE TO MONITOR.
--- NOTE | 2017-10-02 04:08 | NUR ---
PT SLEEPING, CALMLY ON BED, NO DISTRESS NOTED, CALL LIGHT WITHIN REACH, WILL CONTINUE TO MONITOR.
[2017-10-02] MEDS: ONDANSETRON 4 MG/2 ML VIAL IVP SCH ×3 (04:56→21:00)
--- NOTE | 2017-10-02 04:56 | NUR ---
PT REFUSED MEDICATION DUE, PT STATED DOES NOT WANT ANY MEDICATION, PT STABLE, NO DISTRESS NOTED, CALL LIGHT WITHIN REACH, WILL CONTINUE TO MONITOR.
[2017-10-02] MEDS: NACL 0.9% 1,000 ML IV SCH ×3 (05:12→19:30)
[2017-10-02] MEDS: PIPERACILLIN/TAZOBACTAM 4.5 GM in DEXTROSE 5% 100 ML IV SCH ×5 (05:13→20:29)
--- NOTE | 2017-10-02 05:13 | NUR ---
PT REFUSED IVF AND IV ANTIBIOTIC, PER PT STATEMENT, " I AM ALREADY FULL OF MEDICATION, I DON'T WANT ANYMORE, JUST PUT ME TO SLEEP!" EDUCATE PT REGARDING THE IMPORTANCE OF ANTIBIOTIC WITH HER CONDITION, PT DID NOT WANT TO LISTEN AND IGNORED NURSE, PT STABLE, NO DISTRESS NOTED, CALL LIGHT WITHIN REACH, WILL CONTINUE TO MONITOR.
--- NOTE | 2017-10-02 07:15 | NUR ---
DR. COLUNGA SAW PT, PT STABLE, NO DISTRESS NOTED, WILL CONTINUE TO MONITOR.
--- NOTE | 2017-10-02 07:20 | NUR ---
ENDORSED PLAN OF CARE TO DAY SHIFT NURSE [place] RN, PT STABLE, NO DISTRESS NOTED, CALL LIGHT WITHIN REACH.
--- NOTE | 2017-10-02 07:21 | NUR ---
RECEIVED REPORT FROM CAR SALTER NURSE AT BEDSIDE FOR CONTINUITY OF CARE. INTRODUCED MYSELF AND UPDATED THE BOARD. PATIENT ALERT AND AWAKE. DR. COLUNGA IN TO SPEAK TO THE PATIENT. PATIENT STABLE, NO SIGNS OF DISTRESS OR SOB NOTED. BREATHING EVEN AND UNLABORED. PATIENT'S SUPRAPUBIC SUTURES INTACT. IV TO R WRIST 20G, SALINE LOCKED, PATENT, ASYMPTOMATIC, AND INTACT. SAFETY PRECAUTIONS IN PLACE, CALL LIGHT WITHIN REACH, WILL CONTINUE TO MONITOR PATIENT.
[2017-10-02 08:00] VITALS: BP 135/87
--- NOTE | 2017-10-02 08:19 | NUR ---
SPOKE TO DR. LOREDO OVER THE TELEPHONE. UPDATED HIM ON THE PATIENT'S CONDITION AND HER REFUSAL OF FLUIDS, MEDICATIONS, CT, AND WINKLER CATHETER INSERTION. PATIENT DID AGREE TO A CBC THIS MORNING. WAITING FOR RESULTS FROM LAB. DR. LOREDO AWARE. PATIENT SITTING IN HER ROOM, ALERT AND AWAKE. SAFETY PRECAUTION IN PLACE, CALL LIGHT WITHIN REACH. WILL CONTINUE TO MONITOR PATIENT.
[2017-10-02 08:54] LABS: HEMATOCRIT 34.7 % (36-48); HEMOGLOBIN 10.9 g/dL (12.0-16.0); MEAN CORPUSCULAR HEMOGLOBIN 24 pg (27-31); MEAN CORPUSCULAR HGB CONC 32 g/dL (33-37); MEAN CORPUSCULAR VOLUME 75 fL (80-94); PLATELET COUNT (AUTO) 484 K/uL (140-450); RED BLOOD CELL COUNT(AUTO) 4.61 MIL/uL (4.20-5.40); RED CELL DISTRIBUTION WIDTH 19.6 % (11.6-13.7); WHITE BLOOD COUNT (AUTO) 27.8 K/uL (4.8-10.8)
[2017-10-02] MEDS: POTASSIUM CHLORIDE 10 MEQ TABER PO SCH ×2 (09:00→20:29)
--- NOTE | 2017-10-02 09:00 | NUR ---
PATIENT REFUSED HER MORNING MEDICATION OF KDUR PO. EDUCATED PATIENT ON THE BENEFITS OF IT FOR HER CONDITION. PATIENT VERBALIZED UNDERSTANDING BUT SAID "I DON'T WANT ANY MORE MEDS." PATIENT AGAIN VERBALIZED HER REQUEST TO BE DISCHARGE PENDING LAB RESULTS. SAFETY PRECAUTION IN PLACE, CALL LIGHT WITHIN REACH, WILL CONTINUE TO MONITOR PATIENT.
[2017-10-02 09:25] LABS: LYMPHOCYTES % (MANUAL) 11 % (20-46); MONOCYTES % (MANUAL) 4 % (5-12)
--- NOTE | 2017-10-02 10:45 | NUR ---
CALLED PATIENT'S MOTHER PER HER REQUEST. MANAV AT [phone]. SPOKE TO HER UNCLE, JARVIS AND MANAV ABOUT PATIENT'S REQUEST OF THEM COMING TO BRING HER CLOTHES AND PICK HER UP FROM THE HOSPITAL. UPDATED HER CONDITION AND STATUS WITH BOTH JARVIS AND MANAV ABOUT PATIENT'S REFUSAL OF MEDICATIONS, FLUIDS, AND TESTS. THEY VERBALIZED UNDERSTANDING AND DO NOT AGREE WITH HER GOING AMA. PATIENT SPOKE TO THEM OVER THE PHONE, AND GOT AGITATED D/T THEIR REFUSAL TO PICK HER UP. JARVIS STATED THAT HE AND MANAV WILL BE IN LATER TODAY TO SEE PATIENT. PATIENT RESTING IN BED, NO SIGNS OF SOB NOTED, DENIES PAIN. SAFETY PRECAUTION IN PLACE, CALL LIGHT WITHIN REACH, WILL CONTINUE TO MONITOR PATIENT.
--- NOTE | 2017-10-02 11:25 | NUR ---
PATIENT'S UNCLE JARVIS AND MOTHER MANAV IN TO SEE THE PATIENT. THEY SPOKE TO HER ABOUT HER REFUSALS OF HER TREATMENTS. AFTER SPEAKING TO HER FAMILY MEMBERS, PATIENT HAS AGREED TO THE CT ABD/PELVIS W/OUT CONTRAST AND HER ANTIBIOTICS AND HER MORNING LABS. CT WAS CALLED, SPOKE TO ELIDIA, SHE SAID SHE WILL HAVE THE MUD MIXER OPERATOR CALL ME BACK ONCE SHE IS DONE WITH HER OTHER PROCEDURE. WAITING ON CT'S CALL BACK. PATIENT RESTING IN BED, SAFETY PRECAUTION IN PLACE, CALL LIGHT WITHIN REACH, WILL CONTINUE TO MONITOR PATIENT.
--- NOTE | 2017-10-02 12:13 | NUR ---
CM NOTE CONCURRENT REVIEW FAXED TO [facility] [phone] ROLAND # [phone]
--- NOTE | 2017-10-02 12:17 | NUR ---
ZOSYN IVPB ADMINISTERED. PATIENT TOLERATING IT WELL. CASUAL[employer] INSURANCE CLAIM ADJUSTER IN TO SPEAK TO THE PATIENT. NO SIGNS OF DISTRESS OR SOB NOTED. PATIENT DENIES PAIN. SAFETY PRECAUTION IN PLACE, CALL LIGHT WITHIN REACH, WILL CONTINUE TO MONITOR PATIENT.
--- NOTE | 2017-10-02 13:50 | NUR ---
PATIENT OFF THE FLOOR TO CT TO DO THE CT OF THE ABDOMEN AND PELVIS WITHOUT CONTRAST. WILL AWAIT RESULTS.
--- NOTE | 2017-10-02 14:05 | NUR ---
PATIENT BACK ON FLOOR FROM CT. SITTING UP IN CHAIR. NO SIGNS OF SOB OR DISTRESS NOTED. PATIENT DENIES PAIN. SAFETY PRECAUTION IN PLACE, CALL LIGHT WITHIN REACH, WILL CONTINUE TO MONITOR PATIENT.
--- NOTE | 2017-10-02 14:59 | NUR ---
10/02/17 RD FOLLOW UP COMPLETED. PLEASE REFER TO NUTRITION ASSESSMENT UNDER CARE ACTIVITY FOR ESTIMATED NUTRITIONAL NEEDS. CONTINUE NPO STATUS MEDICALLY APPROPRIATE. ADVANCE DIET TO REGULAR TEXTURES SOON PT ABLE TO TOLERATE. RD TO FOLLOW-UP IN 2-3 DAYS PATIENT IS HIGH RISK. BRADLEY THOMAS, OUMAR
--- NOTE | 2017-10-02 15:58 | NUR ---
KRYSTAL PARIKH, IN TO ASSIST THE PATIENT WITH SPONGE BATH. LINENS CHANGED. PATIENT TOLERATING IT WELL. SAFETY PRECAUTION IN PLACE, CALL LIGHT WITHIN REACH, WILL CONTINUE TO MONITOR PATIENT.
[2017-10-02 16:00] VITALS: BP 125/71
--- NOTE | 2017-10-02 16:50 | NUR ---
DR. LOREDO IN TO SEE THE PATIENT. WILL AWAIT HIS RECOMMENDATIONS AND ORDERS.
--- NOTE | 2017-10-02 18:45 | NUR ---
PATIENT IV FOUND ON THE BED, IV CANNULA INTACT. FISHER TROLL LINE, LIZETH INSERTED IV 22G ON L FA, IV INTACT, ASYMPTOMATIC, AND PATENT. PATIENT TOLERATED IT WELL. SAFETY PRECAUTION IN PLACE, CALL LIGHT WITHIN REACH, WILL CONTINUE TO MONITOR PATIENT.
[2017-10-02] MEDS: FERRIC GLUCONATE 125 MG in NACL 0.9% 100 ML IV SCH (19:01)
--- NOTE | 2017-10-02 19:25 | NUR ---
PATIENT REPORT GIVEN TO ACCOUNT DEVELOPMENT MANAGER NURSE AT BEDSIDE FOR CONTINUITY OF CARE. PATIENT IN STABLE CONDITION,
--- NOTE | 2017-10-02 19:26 | NUR ---
RECEIVED BEDSIDE REPORT FROM DAY SHIFT NURSE MOLLY RN, PT STABLE, NO DISTRESS NOTED, IV TO R FA 22G RUNNING IRON SULFATE, INFUSING WELL, PT ON ROOM AIR, NO SOB, INITIAL ASSESSMENT DONE, ALL SAFETY PRECAUTION MET, WILL CONTINUE TO MONITOR.
[2017-10-02] MEDS: SENNA 8.6 MG TAB PO SCH (20:30)
--- NOTE | 2017-10-02 20:30 | NUR ---
DUE MEDICATION GIVEN, PT TOLERATED WELL, NO DISTRESS NOTED, CALL LIGHT WITHIN REACH, WILL CONTINUE TO MONITOR.
--- NOTE | 2017-10-02 22:22 | NUR ---
DR. TODD SEEN THE PT BY BEDSIDE.
[2017-10-03] VITALS: BP 140/67
--- NOTE | 2017-10-03 | NUR ---
PT SLEEPING, NO DISTRESS NOTED, CALL LIGHT WITHIN REACH, WILL CONTINUE TO MONITOR.
[2017-10-03] MEDS: PIPERACILLIN/TAZOBACTAM 4.5 GM in DEXTROSE 5% 100 ML IV SCH ×4 (00:35→17:33)
[2017-10-03] MEDS: NACL 0.9% 1,000 ML IV SCH ×4 (02:10→21:56)
--- NOTE | 2017-10-03 02:40 | NUR ---
PT AMBULATED TO RESTROOM TO URINATE, THEN BACK TO BED, PT STABLE, TOLERATED WELL, NO DISTRESS NOTED, CALL LIGHT WITHIN REACH WILL CONTINUE TO MONITOR.
[2017-10-03] MEDS: ONDANSETRON 4 MG/2 ML VIAL IVP SCH ×3 (05:21→21:00)
--- NOTE | 2017-10-03 05:21 | NUR ---
DUE MEDICATION GIVEN, PT TOLERATED WELL, NO DISTRESS NOTED, CALL LIGHT WITHIN REACH, WILL CONTINUE TO MONITOR.
--- NOTE | 2017-10-03 05:40 | NUR ---
OPT Addendum: 10/03/17 at 0710 by Reina Corley RN DR. COLUNGA SAW PT, PT STABLE, NO DISTRESS NOTED, ORDERED CBC AND BMP, WILL PUT IN ORDER, AND CONTINUE WITH ORDERS.
[2017-10-03 07:16] LABS: HEMATOCRIT 27.7 % (36-48); HEMOGLOBIN 8.6 g/dL (12.0-16.0); MEAN CORPUSCULAR HEMOGLOBIN 23 pg (27-31); MEAN CORPUSCULAR HGB CONC 31 g/dL (33-37); MEAN CORPUSCULAR VOLUME 75 fL (80-94); PLATELET COUNT (AUTO) 419 K/uL (140-450); WHITE BLOOD COUNT (AUTO) 14.2 K/uL (4.8-10.8)
--- NOTE | 2017-10-03 07:29 | NUR ---
ENDORSED PLAN OF CARE TO DAY SHIFT NURSE BARRY GORDON, PT STABLE, NO DISTRESS NOTED, CALL LIGHT WITHIN REACH.
[2017-10-03 07:30] LABS: ANION GAP 8.3 (8-16); CARBON DIOXIDE 33.3 mmol/L (21-32); CREATININE 0.7 mg/dL (0.6-1.3)
[2017-10-03 07:35] LABS: POTASSIUM 2.6 mmol/L (3.5-5.1)
--- NOTE | 2017-10-03 07:35 | NUR ---
Patient's Plan of Care was discussed and reviewed with CUSHION GUM APPLICATOR: ZELALEM.
[2017-10-03] MEDS ORDERED: KCL 20 MEQ/WATER INJ PREMIX 200 ML IV ONE (07:50)
[2017-10-03 08:00] VITALS: BP 125/71
[2017-10-03] MEDS: POTASSIUM CHLORIDE 10 MEQ TABER PO SCH ×2 (09:00→21:08)
[2017-10-03] MEDS ORDERED: POTASSIUM CHLORIDE 40 MEQ, LIDOCAINE 1% 25 MG in NACL 0.9% 250 ML IV ONE (09:00)
[2017-10-03 09:24] LABS: LYMPHOCYTES % (MANUAL) 8 % (20-46); MONOCYTES % (MANUAL) 15 % (5-12)
--- NOTE | 2017-10-03 09:35 | NUR ---
DR. LOREDO CAME, REVIEWED PT. CHART AND SEEN PT..
[2017-10-03 12:00] VITALS: BP 131/71
[2017-10-03] MEDS: FERRIC GLUCONATE 125 MG in NACL 0.9% 100 ML IV SCH (14:51)
--- NOTE | 2017-10-03 19:05 | NUR ---
BEDSIDE REPORT GIVEN TO STEFFANY CIFUENTES. IVF INFUSING WELL. IN STABLE CONDITION.
--- NOTE | 2017-10-03 19:06 | NUR ---
PATIENT IS CURENTLY RESTING IN BED DENIES PAIN AND SAYS SOMETIMES SHE FEELS NAUSEATED.IVF INFUSING WELL IV SITE PATENT. INCISION TO LOWER ABDOMEN IS CURRENTLY DRY AND INTACT. PATIENT IS ABLE TO AMBULATE WELL. NEEDS CONTINUES TO BE MET. PATIENT CONTINUES TO BE NPO.CALL LIGHT WITHIN REACH WILL CONTINUE TO MONITOR.
[2017-10-03 20:00] VITALS: BP 146/72
--- NOTE | 2017-10-03 20:00 | NUR ---
Patient's Plan of Care was discussed and reviewed with INHALATION THERAPIST: STEFFANY YING
--- NOTE | 2017-10-03 21:00 | NUR ---
SHIRLEY PIÑA DIDN'T ADMINISTER ZOFRAN PATIENT ISN'T COMPLAINING OF NAUSEA OR VOMITING PATIENT IS CURRENTLY SMILING RESTING IN BED.
[2017-10-03] MEDS: SENNA 8.6 MG TAB PO SCH (21:09)
--- NOTE | 2017-10-03 21:30 | NUR ---
PATIENT IS CURRENTLY RESTING IN BED DENIES PAIN.IVF INFUSING WELL.
--- NOTE | 2017-10-03 23:00 | NUR ---
PATIENT STABLE DENIES PAIN SLEEPING IN BED.IVF INFUSING WELL,NO N/V NOTED.CALL LIGHT WITHIN REACH.
[2017-10-04] VITALS: BP 146/72
[2017-10-04] MEDS: PIPERACILLIN/TAZOBACTAM 4.5 GM in DEXTROSE 5% 100 ML IV SCH ×4 (00:11→18:04)
--- NOTE | 2017-10-04 00:20 | NUR ---
PATIENT SLEEPING NEEDS MET.
--- NOTE | 2017-10-04 00:57 | NUR ---
PATIENT HAS PERIODS WHEN SHE WAKES UP SITS AT THE EDGE OF THE BED IVF AND IS TALKING TO HERSELF AND THEN GOES BACK TO SLEEP.IVF INFUSING WELL IV SITE PATENT.
--- NOTE | 2017-10-04 02:15 | NUR ---
PATIENT SLEEPING IN BED NEEDS MET.
[2017-10-04] MEDS: NACL 0.9% 1,000 ML IV SCH ×4 (03:25→17:56)
--- NOTE | 2017-10-04 04:28 | NUR ---
PATIENT ASSISTED TO THE BATHROOM AND BACK TO BED.IVF INFUSING WELL IV SITE PATENT.
[2017-10-04] MEDS: ONDANSETRON 4 MG/2 ML VIAL IVP SCH ×4 (05:00→20:50)
--- NOTE | 2017-10-04 05:01 | NUR ---
PATIENT UNCOOPERATIVE PATIENT INSISTS THAT SHE IS VERY THIRSTY AND I EXPLAINED THAT SHE IS NPO AT THIS TIME.PATIENT STATES,"I DON'T CARE IM FEELING BETTER AND I WANT TO DRINK WATER." SHE DRANK A CUP OF WATER.WILL CONTINUE TO MONITOR. PATIENT HASN'T BEEN FEELING NAUSEATED OF FEELING LIKE SHE NEEDS TO THROW UP.
--- NOTE | 2017-10-04 05:08 | NUR ---
ZOFRAN NOT ADMINISTERED PATIENT ISN'T FEELING NAUSEATED DURING THE NIGHT AND PATIENT HASN'T VOMITED DURING THE NIGHT. PATIENT IS CURRENTLY SLEEPING.
[2017-10-04 07:20] LABS: HEMATOCRIT 29.1 % (36-48); MEAN CORPUSCULAR HEMOGLOBIN 24 pg (27-31); MEAN CORPUSCULAR HGB CONC 31 g/dL (33-37); MEAN CORPUSCULAR VOLUME 76 fL (80-94); PLATELET COUNT (AUTO) 421 K/uL (140-450); RED BLOOD CELL COUNT(AUTO) 3.83 MIL/uL (4.20-5.40); RED CELL DISTRIBUTION WIDTH 19.4 % (11.6-13.7); WHITE BLOOD COUNT (AUTO) 10.9 K/uL (4.8-10.8)
--- NOTE | 2017-10-04 07:28 | NUR ---
PATIENT CURRENTLY STABLE REPORT ENDORSED TO SHIRLEY TAYLOR. MD TORRES CAME ALSO TO SEE THE PATIENT.
--- NOTE | 2017-10-04 07:30 | NUR ---
RECEIVED PT ON BED AAOX4. NO SOB NOTED. NO C/O PAIN AT THIS TIME. IV TO RT FOREARM PATENT AND INTACT. CHEST CLEAR. ABDOMEN SOFT, BOWEL SOUNDS PRESENT. NPO EXCEPT MEDS MAINTAINED. WITH SUPRAPUBIC TRANSVERSE INCISION S/P HYSTERECTOMY 09/23/17, ABDOMINAL PAD DRESSING DRY AND INTACT. NO EDEMA NOTED. INSTRUCTED PT TO CALL FOR ASSISTANCE, CALL LIGHT WITHIN REACH, PT VERBALIZED UNDERSTANDING.
[2017-10-04 07:42] LABS: ANION GAP 11.2 (8-16); CARBON DIOXIDE 28.6 mmol/L (21-32); CREATININE 0.7 mg/dL (0.6-1.3)
[2017-10-04 07:46] LABS: POTASSIUM 2.8 mmol/L (3.5-5.1)
[2017-10-04 08:00] VITALS: BP 139/75
[2017-10-04 08:00] LABS: EOSINOPHILS % (MANUAL) 2 % (0-4); LYMPHOCYTES % (MANUAL) 18 % (20-46); MONOCYTES % (MANUAL) 14 % (5-12)
[2017-10-04] MEDS ORDERED: POTASSIUM CHLORIDE 40 MEQ, LIDOCAINE 1% 25 MG in NACL 0.9% 250 ML IV ONE (08:00)
[2017-10-04] MEDS: POTASSIUM CHLORIDE 10 MEQ TABER PO SCH ×3 (09:30→20:47)
--- NOTE | 2017-10-04 13:00 | NUR ---
PT REFUSED ZOFRAN IVP, STATED SHE IS NOT NAUSEATED.
[2017-10-04] MEDS: FERRIC GLUCONATE 125 MG in NACL 0.9% 100 ML IV SCH (15:06)
--- NOTE | 2017-10-04 15:20 | NUR ---
PT RESTING. NO SOB NOTED. NO SIGNS OF PAIN.
[2017-10-04 16:00] VITALS: BP 133/84
--- NOTE | 2017-10-04 18:05 | NUR ---
CLEAR LIQUIDS TOLERATED WELL BY PT. NO N&V NOTED.
--- NOTE | 2017-10-04 19:22 | NUR ---
PT AWAKE. WATCHING TV. NOP SOB NOTED. NO COMPLAINTS MADE. ENDORSED TO NEXT SHIFT NURSE FOR CONTINUITY OF CARE.
[2017-10-04] MEDS: SENNA 8.6 MG TAB PO SCH ×2 (20:39→20:48)
--- NOTE | 2017-10-04 20:50 | NUR ---
ADMINISTERED SCHEDULED MEDICATIONS, PT TOLERATED WELL. PT IN STABLE CONDITION, NO SIGNS OF DISTRESS NOTED. BED IN LOWEST POSITION, CALL LIGHT WITHIN REACH. WILL CONTINUE TO MONITOR.
[2017-10-05] VITALS: BP 149/71
--- NOTE | 2017-10-05 | NUR ---
PT IN STABLE CONDITION, NO SIGNS OF DISTRESS NOTED. BED IN LOWEST POSITION, CALL LIGHT WITHIN REACH. WILL CONTINUE TO MONITOR.
[2017-10-05] MEDS: NACL 0.9% 1,000 ML IV SCH ×3 (00:36→13:56)
--- NOTE | 2017-10-05 03:45 | NUR ---
PT IN STABLE CONDITION, NO SIGNS OF DISTRESS NOTED. BED IN LOWEST POSITION, CALL LIGHT WITHIN REACH. WILL CONTINUE TO MONITOR.
[2017-10-05] MEDS: ONDANSETRON 4 MG/2 ML VIAL IVP SCH ×2 (05:00→13:00)
[2017-10-05] MEDS: PIPERACILLIN/TAZOBACTAM 4.5 GM in DEXTROSE 5% 100 ML IV SCH ×5 (05:23→17:23)
--- NOTE | 2017-10-05 07:27 | NUR ---
ENDORSED PT IN STABLE CONDITION TO DAY SHIFT NURSE FOR CONTINUITY OF CARE.
[2017-10-05 08:00] VITALS: BP 155/72
[2017-10-05] MEDS: POTASSIUM CHLORIDE 10 MEQ TABER PO SCH (08:33)
--- NOTE | 2017-10-05 09:40 | NUR ---
PT REFUSED IVF, WANTED TO BE DISCONNECTED FROM IV. HOWEVER, SHE DOES WANT IV IRON WHICH IS DUE IN THE AFTERNOON. IV CATH IN PLACE, FLUSHED, ASYMPTOMATIC.
--- NOTE | 2017-10-05 12:03 | NUR ---
ABX IS ADMINISTERED. PT RESTING IN BED. FINISHED WITH LUNCH. NO S/S OF ACUTE DISTRESS.
--- NOTE | 2017-10-05 12:38 | NUR ---
RECEIVED CALL BACK FROM DR. LOREDO. NOTIFIED DR LOREDO ABOUT DR COLUNGA'S DISCHARGE ORDER AND LAST ABD X-RAY RESULT(10/05). DR LOREDO STATED HE WILL SEE THE PT TODAY.
--- NOTE | 2017-10-05 13:03 | NUR ---
REFUSED ZOFRAN. PT STATED SHE IS NOT NAUSEATED, WILL LET ME KNOW WHEN SHE NEEDS IT.
--- NOTE | 2017-10-05 14:26 | NUR ---
CM NOTE CONCURRENT REVIEW FAXED TO [facility] [phone] ROLAND # [phone]
[2017-10-05] MEDS: FERRIC GLUCONATE 125 MG in NACL 0.9% 100 ML IV SCH (15:02)
--- NOTE | 2017-10-05 15:50 | NUR ---
PT HAD YELLOW LIQUID STOOL IN BEDSIDE COMMODE. CHANGED PT'S GOWN.
[2017-10-05 16:08] VITALS: BP 157/76
--- NOTE | 2017-10-05 16:30 | NUR ---
PT REFUSED IV FLUSH OR ASPIRATION. DENIES ANY SWELLING. REFUSED TO START A NEW IV.
--- NOTE | 2017-10-05 18:20 | NUR ---
DR LOREDO HAS SEEN THE PT AND OK WITH DISCHARGE.
--- NOTE | 2017-10-05 18:29 | NUR ---
CALLED PT'S FAMILY MEMBER [phone], SPOKE WITH PT'S MOTHER WHO STATED NO CAR AVAILABLE RIGHT NOW AND WILL SALES AGENT FINANCIAL REPORT SERVICE PT REBEKASADE WHEN HER BROTHER COMES BACK.
[2017-10-05] MEDS ORDERED: LEVO750T2 PO (18:47)
[2017-10-05] MEDS ORDERED: METR250T2 PO (18:48)
--- NOTE | 2017-10-05 19:30 | NUR ---
DISCHARGED PT PER MD COLUNGA'S ORDER. CRUZ WATSON PROVIDED TO THE PT. MADE PT AWARE THAT SHE NEEDS TO CALL THE PHONE NUMBER PROVIDED TO MAKE APPOINTMENT WITH DR COLUNGA. DISCHARGE INSTRUCTIONS AND MEDS TEACHING PROVIDED. PT VERBALIZED UNDERSTANDING. IV DC'D BY RANDY WATSON, TIP INTACT, PRESSURE APPLIED. PT LEFT IN STABLE CONDITION AND WITH ALL HER BELONGINGS. PT'S MOTHER IS HERE TO HVAC MECHANICAL ENGINEER THE PT. WHEELED PT OUT TO THE LOBBY.
== END 2017-10-05 19:30 | disposition home or self-care (01) | DRG 519 ==
LOC: MMU 06:06 → MTU 07:59
PROVIDERS: ADMIT Obstetrics & Gynecology; ATTEND Obstetrics & Gynecology
PROC: 0UT20ZZ Resection of Bilateral Ovaries, Open Approach (ICD-10-PCS; 2017-09-23)
PROC: 0UT70ZZ Resection of Bilateral Fallopian Tubes, Open Approach (ICD-10-PCS; 2017-09-23)
PROC: 30233N1 Transfusion of Nonautologous Red Blood Cells into Peripheral Vein, Percutaneous Approach (ICD-10-PCS; 2017-09-23)
PROC: 0UT90ZL Resection of Uterus, Supracervical, Open Approach (ICD-10-PCS; principal; 2017-09-23 07:30)
DX: D25.9 Leiomyoma of uterus, unspecified (principal); K56.600 Partial intestinal obstruction, unspecified as to cause; E87.1 Hypo-osmolality and hyponatremia; F33.1 Major depressive disorder, recurrent, moderate; F20.9 Schizophrenia, unspecified; N92.1 Excessive and frequent menstruation with irregular cycle; K59.00 Constipation, unspecified; D50.9 Iron deficiency anemia, unspecified; D72.829 Elevated white blood cell count, unspecified; N83.201 Unspecified ovarian cyst, right side; G89.29 Other chronic pain; Z88.6 Allergy status to analgesic agent; Z88.2 Allergy status to sulfonamides; Z88.5 Allergy status to narcotic agent
CPT/HCPCS: 36415; 74018; 74022; 74250; 80048; 82948; 83735; 84702; 85018; 85025; 86886; 86900; 86901; 86920; 87081; 88309; J0330; J0690; J1100; J2001; J2250; J2270; J2405; J2543; J2704; J2710; J2916; J3010; J3480; J3490; J7030; J7060; J7120; P9016; Q0092

== ENCOUNTER 2018-11-15 11:09 | Emergency (ER) | payer OTHER ==
[~2018-11-15] VITALS: Ht 165.1 cm; Wt 98.2 kg
[~2018-11-15 11:09] MED LIST: LEVO750T2 PO; METR250T2 PO
[2018-11-15 11:26] VITALS: BP 155/84
--- NOTE | 2018-11-15 11:36 | NUR ---
pt gave urine sample and then ambulated to EVERARDO bellamy
--- NOTE | 2018-11-15 13:21 | NUR ---
PT TO ER BED 2
--- NOTE | 2018-11-15 13:30 | NUR ---
c/o "cyst" on inside of L leg. Denies pain, n/v/d/fever. Very small raised bump on inside of L leg, no redness/discharge/swelling SKIN IS PINK/WARM/DRY; AAOX4 WITH EVEN AND STEADY GAIT; PATIENT STATES PAIN OF 0/10 AT THIS TIME; VSS; PATIENT POSITIONED FOR COMFORT; HOB ELEVATED; BEDRAILS UP X1; BED DOWN. ER MD MADE AWARE OF PT STATUS.
--- NOTE | 2018-11-15 13:31 | NUR ---
Dr. Boggs evaluating patient at bedside.
--- NOTE | 2018-11-15 14:00 | NUR ---
PELVIC AND I/D KIT SET UP AT BEDSIDE PER VERBAL MD ORDER
[2018-11-15 15:25] VITALS: BP 149/81
--- NOTE | 2018-11-15 15:25 | NUR ---
Patient discharged with v/s stable. Written and verbal after care instructions given and explained. Patient verbalized understanding. Ambulatory with to car. All questions addressed prior to discharge. Advised to follow up with PMD.
== END 2018-11-15 13:21 | disposition home or self-care (01) ==
LOC: MED 11:09
DX: N75.0 Cyst of Bartholin's gland (principal); Z88.2 Allergy status to sulfonamides; Z88.6 Allergy status to analgesic agent; Z88.8 Allergy status to other drugs, medicaments and biological substances; Z79.2 Long term (current) use of antibiotics; Z79.899 Other long term (current) drug therapy
CPT/HCPCS: 81002; 81025; 99282

== ENCOUNTER 2019-10-20 11:57 | Emergency (ER) | payer OTHER ==
[~2019-10-20] VITALS: Ht 165.1 cm; Wt 91.6 kg
[2019-10-20 12:11] VITALS: BP 145/81
--- NOTE | 2019-10-20 12:15 | NUR ---
TO ED 08, AMBULATORY.
--- NOTE | 2019-10-20 12:28 | NUR ---
non morse intercept technician at bedside.
--- NOTE | 2019-10-20 12:28 | NUR ---
C/O PRODUCTIVE COUGH X2 DAYS. DENIES FEVER/N/V/D. PATIENT STATES PAIN OF 0/10 AT THIS TIME. PATIENT POSITIONED FOR COMFORT; HOB ELEVATED; BEDRAILS UP X1; BED DOWN. ER MD MADE AWARE OF PT STATUS.
--- NOTE | 2019-10-20 12:30 | NUR ---
X RAY AT BED SIDE
--- NOTE | 2019-10-20 14:00 | NUR ---
PA REILLY EVALUATING PT AT BEDSIDE.
[2019-10-20] MEDS: predniSONE 20 MG TAB PO ONE (14:16)
[2019-10-20] MEDS: ALBUTEROL 0.083% 2.5 MG/3 ML NEBU INH ONE (14:24)
--- NOTE | 2019-10-20 14:24 | NUR ---
Breathing treatment administered by respiratory therapist at bedside.
--- NOTE | 2019-10-20 14:24 | NUR ---
Jose carrizales in [facility] - 10/20/19 at 1424 by MED1 RT AT BEDSIDE FOR BREATHING TREATMENT.
--- NOTE | 2019-10-20 15:24 | NUR ---
Patient discharged with v/s stable. Written and verbal after care instructions given and explained. Patient alert, oriented and verbalized understanding of instructions. Ambulatory with steady gait. All questions addressed prior to discharge. ID band removed. Patient advised to follow up with PMD. Rx of MEDROL, VENTOLIN & PROMETHAZINE given. Patient educated on indication of medication including possible reaction and side effects. Opportunity to ask questions provided and answered.
[2019-10-20 15:25] VITALS: BP 145/72
== END 2019-10-20 15:24 | disposition home or self-care (01) ==
LOC: MED 11:57
DX: J20.9 Acute bronchitis, unspecified (principal); Z79.899 Other long term (current) drug therapy; Z88.2 Allergy status to sulfonamides
CPT/HCPCS: 71045; 94640; 99283; J7512; J7613; Q0092